=== PATIENT | female | born 1965 | race Caucasian/White ===

== ENCOUNTER 2024-04-30 10:50 | Outpatient (AMB) | payer OTHER, SELFPAY ==
--- NOTE | 2024-04-30 10:47 | A.OFFPC_ITS ---
Vital Signs 04/30/24 11:04 Height 5 ft 0.83 in Weight 193 lb BMI 36.7 BP 116/86 Blood Pressure Location Rt brachial Position Sitting Respiration 14 Pulse 76 Pulse Source Pulse Oximeter Temp 98.6 F Temp Source Oral Pulse Oximetry (%) 94 Oxygen Delivery Method Room Air Intake Visit Reasons: Patient needs appt right had stroke Intake Note: New patient visit [facility]ne[facility] Required: No Allergies clarithromycin [From Biaxin] Allergy (Unknown, Verified 04/30/24 11:26) throat closes Fish Containing Products Allergy (Unknown, Verified 04/30/24 11:26) Migraine Penicillins Allergy (Unknown, Verified 04/30/24 11:26) itchy Medication List - Last Reconciled 04/30/24 by Francheska Ulrich, CLIENT PORTFOLIO MANAGER- amlodipine 10 mg PO DAILY aspirin 81 mg PO DAILY atorvastatin 40 mg PO DAILY carvedilol 6.25 mg PO BID cranberry conc-ascorbic acid 12,600-20 mg caps PO loratadine-pseudoephedrine 5-120 mg ER (AllerClear D-12hr) 1 tab PO Q12H Tobacco use date assessed: 04/30/24 Dental Screening Dental Screen Date: 04/30/24 Did you have a dental visit in the last 12 months?: No Did you have a dental problem in the last 6 months where you did not have access to dental care?: No Was dental information given to patient?: No (Will check who her insurance covers) HPI HPI Comments History of Present Illness Details 59-year-old female with ischemic stroke (11/2023) with right hemiparesis RUE, facial droop & slurred speech, hypertension, seasonal allergies, CAD, dilation of ascending aorta, LVH , obesity 32 y/o special needs step dtr who lives w/ her s/p Uterine fibroid removal 05/2000, LEEP, adhesion removal, 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 MRI without brett showed acute i nfarct involving the left basal ganglia and adjacent white matter, scattered nonspecific FLAIR hyperintensity in the white matter most likely chronic small-vessel disease 12/19/23 Echocardiogram shows ascending a dodie at the upper limit of normal 3.6 cm, mitral valve mildly calcified, trace mitral regurg, right coronary cusp mildly calcified, mobile atrial septum but does not meet the criteria for intra atrial aneurysm, ejection fraction 55-60%, mild concentric LVH 12/19/23 CT angio of the head 12/18/2023 s hows mild mural calcifications in the right proximal internal carotid artery Specialists Neuro @ [facility] Dr Hunter next appt 04/2024 Cards > not active, referral placed today to [facility] Cards per request. Optho - wears glasses and is est w/ Eye doc and UTD one exams Health Maintenance: Colon has never had colon, denies family hx, will start with cologaurd given current health state, ordered today. Mammo - ordered today Dexa has never had one , ordered today Tdap given today Here today to est care and for a physical exam. In regards to her ischemic stroke that occurred in November of 2023, she is followed by [facility] Neurology. Consult note from December of 2023 reviewed. Her next appointment is in April of 2024. She is tolerant and compliant of her aspirin, atorvastatin and aspirin. She stopped Plavix after 21 days as directed. She completed occupational therapy. She reports full use of her right upper extremity, some mild facial drooping on the right, still suffers from speech impairments of which she describes as forgetting words or not having words come out right. She was referred to speech therapy however due to staffing. The services whenever rendered. She remains interested in speech therapy services In regards to her hypertension, she reports that she monitors them routinely at home and they have been at goal. She is tolerating compliant of her amlodipine and carvedilol. Will be having an Echo in may Sleep study in July Clement pending In review of her daily medication she is taking Claritin D every day sometimes 2 times per day. Discussed with her stopping this given the pseudoephedrine. She reports that she has received allergy shots in the past which did help her seasonal allergies however when she comes off of the Sudafed she has recurrent sinusitis. She is hesitant to stop this especially given the current allergy conditions. Plan Continue follow up with Neurology Continue all medications without change Recommend discontinuing the Sudafed and taking a once daily Claritin or other axjp-rdj-[id number] antihistamine without a decongestant. Treat nasal symptoms with Flonase and ipratropium. Referral for cardiology placed today Speech therapy order placed today Cologuard ordered today along with mammo and DEXA Tdap was administered. Check with the pharmacy about shingles and Prevnar Labs are up-to-date. Done November of 2023 at [facility] all of which were reviewed today. Return to the office in for routine follow up of complex conditions, sooner as needed. This note is constructed using voice recognition software. While every effort has been made to ensure accuracy in metal furrer, still errors may have been included Sometimes, these errors may affect the content or meaning of the given sentence . 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 1. Little interest or pleasure in doing things: not at all 2. Feeling down, depressed, or hopeless: not at all 3. Trouble falling or staying asleep, or sleeping too much: not at all 4. Feeling tired or having little energy: several days 5. Poor appetite or overeating: not at all 6. Feeling bad about yourself - or that you are a failure or have let yourself or your family down: not at all 7. Trouble concentrating on things, such as reading the newspaper or watching television: not at all 8. Moving or speaking so slowly that other people could have noticed. Or the opposite - being so fidgety or restless that you have been moving around a lot more than usual: not at all 9. Thoughts that you would be better off or of hurting yourself in some way: not at all Total score: 1 Depression Screening Interpretation: Negative Depression Screening Done: Yes [id number] - PHQ-9 Billing: Yes Source: Developed by Drs. Kleber Ulloa, Alfred Morejon and colleagues, with an educational mary from [employer]. Thrive Questionnaire Date Thrive assessed: 04/30/24 I am a: Patient What is your living situation today?: I have a steady place to live Within the past 12 months, did the food you bought not last and you didn't have the money to get more?: Never true Within the past 12 months, did you worry whether your food would run out before you got money to buy more?: Never true Do you have trouble paying for medicines?: No Do you have trouble getting transportation to medical appointments?: No Do you have trouble paying your heating and electricity bill?: No Do you have trouble taking care of your child, family member or friend?: No Do you have trouble with day-to-day activities such as bathing, preparing meals, shopping, managing finances, etc.?: No Are you currently unemployed and looking for a job?: No Are you interested in more education?: No Please select the resources that you would like help with: None Currently or been in a relationship where the following occur: No concerns reported THRIVE Score: 0 AUDIT C Alcohol Use Questionnaire (AUDIT-C) 1. How often do you have a drink containing alcohol?: Never 3. How often do you have six or more drinks on one occasion?: Never Total Score: 0 Score Reviewed/Action Taken: Yes BRETT-7 AMB Questionnaire BRETT-7 Date BRETT - 7 assessed: 04/30/24 Feeling nervous, anxious, or on edge: 0 = Not at all Not being able to stop or control worryin = Not at all Worrying too much about different things: 0 = Not at all Trouble relaxin = Several days Being so restless that it is hard to sit still: 0 = Not at all Becoming easily annoyed or irritable: 0 = Not at all Feeling afraid as if something awful might happen: 0 = Not at all Total BRETT-7 score (0-4 normal; 5-9 mild; 10-14 moderate; 15-21 severe): 1 Source: Developed by Drs. Kleber Ulloa, Alfred Morejon and colleagues, with an educational mary from [employer]. BRETT-7 Assessment Billing BRETT-7 Assessment Tool: BRETT-7 Assessment 34898 Review of Systems Const Details: Constitutional: Denies fever. Skin: Denies rash. Eye: Denies eye pain. ENMT: Denies sore throat and nasal congestion. Respiratory: Denies shortness of breath and cough. Gastrointestinal: Denies nausea, vomiting or abdominal pain. Cardiovascular: Denies chest pain and syncope. Genitourinary: Denies dysuria. Musculoskeletal: Denies back pain and extremity pain. Neurologic: Denies headaches, confusion, and weakness. Psychiatric: Denies suicidal thoughts and substance abuse. Allergy/ Immunologic: Denies impaired immunity. Physical exam (Primary Care) Vital Signs: Last Vital Signs Temp 98.6 F 04/30/24 11:04 Pulse 76 04/30/24 11:04 Resp 14 04/30/24 11:04 BP 116/86 04/30/24 11:04 Pulse Ox 94 04/30/24 11:04 Oxygen Delivery Method Room Air 04/30/24 11:04 BMI result Body Mass Index 36.7 BMI Assessment/Plan discussion: High BMI High, discussed plan: lifestyle Tobacco/Smoking Status: Tobacco use Status Tobacco use date assessed 04/30/24 04/30/24 11:07 Patient Tobacco Use Status Never used Tobacco 04/30/24 11:07 PHQ-9: PHQ-9 Score PHQ-9: Total score 1 04/30/24 11:12 Depression Screening Interpretation: Negative Thrive Assessment: Date of Thrive Assessment Date Thrive assessed 04/30/24 04/30/24 11:20 Currently or been in a relationship where the following occur: No concerns reported Const Other: General: Well developed, well nourished, in no acute distress. Appears stated age. Head: Normocephalic, atraumatic. Eyes: Pupils are equal, round and reactive to light and accommodation. Conjunctivae are clear. Vision grossly normal. Ears: TMs intact AU, congestion noted EACS WNL Nose: Patent, without discharge. Mouth: There are no ulcers or lesions noted. No inflammation, no post nasal drip, no plaques nor exudates. Neck: Supple, no adenopathy or thyromegaly. Lungs: Clear to auscultation bilaterally. No rales, rhonchi or wheeze noted. Good air flow in all van. Heart: Regular rate and rhythm. No murmurs, click, rubs or gallops are noted. Abdomen: Bowel sounds present in all quadrants. The abdomen is soft, nontender, with no masses or organomegaly noted. No hernias are noted. Musculoskeletal: Joints are nontender, without swelling, redness, or effusions. Range of motion is observed to be normal. Pulses: Peripheral pulses are equal and palpable bilaterally. Extremities: No clubbing, cyanosis is noted. Trace edema bilateral lower extremities, nonpitting, varicosities bilat, spider veins worse on left ankle Neurologic: Gait and station normal. Right facial droop 4/5 RUE otherwise Motor strength grossly symmetrical and intact. No sensory loss. Balance normal. Skin: No rashes, ulcers, or lesions noted. Turgor is good. Skin color is good. Hair and nails are without abnormalities. Psych: Normal eye contact, affect and mood appropriate, and normal interactions. Patient is alert and appropriate to context. 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: Comment: MRI 11/2023 @ [facility] Code(s): R90.82 - White matter disease, unspecified; I99.9 - Unspecified disorder of circulatory system (2) Hypertensive cardiomegaly: Comment: echo 12/19/23 LVH EF 55-60% Code(s): I11.9 - Hypertensive heart disease without heart failure (3) Ascending aorta dilation: Comment: eho 12/19/23 3.6 cm Code(s): I77.810 - Thoracic aortic ectasia (4) CAD in [place] artery: Code(s): I25.10 - Atherosclerotic heart disease of [place] coronary artery without angina pectoris (5) Obesity with serious comorbidity: Comment: with htn and cad Code(s): E66.9 - Obesity, unspecified Qualifiers: Obesity type: due to excess calories Obesity classification: adult class 2 (BMI 35 - 39.9) Body mass index: BMI 36.0-36.9 Qualified Code(s): E66.01 - Morbid (severe) obesity due to excess calories; Z68.36 - Body mass index [BMI] 36.0-36.9, adult (6) Menopause: Code(s): Z78.0 - Asymptomatic menopausal state (7) Right hemiparesis: Comment: Sequela of CVA 12-18-23 Affecting right upper extremity, right facial droop Code(s): G81.91 - Hemiplegia, unspecified affecting right dominant side (8) HTN (hypertension): Code(s): I10 - Essential (primary) hypertension Qualifiers: Hypertension type: primary hypertension Qualified Code(s): I10 - Essential (primary) hypertension (9) CVA (cerebral vascular accident): Comment: left basal ganglia acute infarct and small microhemorrhage in the deep location from small vessel dz r/t uncontrolled HTN Code(s): I63.9 - Cerebral infarction, unspecified Qualifiers: CVA mechanism: embolism Precerebral and cerebral artery: middle cerebral artery Laterality of affected vessel: left Qualified Code(s): I63.412 - Cerebral infarction due to embolism of left middle cerebral artery (10) Seasonal allergies: Code(s): J30.2 - Other seasonal allergic rhinitis Orders: Orders MM tomosynthesis screening BI Today Z12.31 - Encounter for screening mammogram for malignant neoplasm of breast, Z78.0 - Asymptomatic menopausal state XR DEXA axial skeleton Today Z12.31 - Encounter for screening mammogram for malignant neoplasm of breast, Z78.0 - Asymptomatic menopausal state Referrals Speech and Hearing Referral I63.9 - Cerebral infarction, unspecified Cardiology Referral I11.9 - Hypertensive heart disease without heart failure, I25.10 - Atherosclerotic heart disease of [place] coronary artery without angina pectoris, I77.810 - Thoracic aortic ectasia Cologuard Test Z12.11 - Encounter for screening for malignant neoplasm of colon, Z12.12 - Encounter for screening for malignant neoplasm of rectum Medications: New atorvastatin 40 mg PO DAILY 90 tabs 0RF amlodipine 10 mg PO DAILY 90 tabs 0RF carvedilol 6.25 mg PO BID 180 tabs 0RF Patient Instructions: Get Shingles vaccine, ask Pharmacy about Prevnar Tdap given today Health screenings for women You should visit your health care provider from time to time, even if you are healthy. The purpose of these visits is to: Screen for medical issues Assess your risk for future medical problems Encourage a healthy lifestyle Update vaccinations and other preventive care services Help you get to know your provider in case of an illness Information Even if you feel fine, you should still see your provider for regular checkups. These visits can help you avoid problems in the future. For example, the only way to find out if you have high blood pressure is to have it checked regularly. High blood sugar and high cholesterol levels also may not have any symptoms in the early stages. A simple blood test can check for these conditions. There are specific times when you should see your provider or receive specific health screenings. The [place] Preventive Services Task Force publishes a list of recommended screenings. Below are screening guidelines for women ages 18 to 39. BLOOD PRESSURE SCREENING Your blood pressure should be checked at least once every 3 to 5 years if: Your blood pressure is in the normal range (top number less than 120 mm Hg and bottom number less than 80 mm Hg) You don't have risk factors for high blood pressure Ask your provider if you need your blood pressure checked more often if: The top number is 120 to 129 mm Hg or the bottom number is 70 to 79 mm Hg You have diabetes, heart disease, kidney problems, are overweight, or have certain other health conditions You have a first-degree relative with high blood pressure You are Black You had high blood pressure during a If the top number is 130 mm Hg or greater or the bottom number is 80 mm Hg or greater, this is considered stage 1 hypertension. Schedule an appointment with your provider to learn how you can reduce your blood pressure. Watch for blood pressure screenings in your area. Ask your provider if you can stop in to have your blood pressure checked. BREAST CANCER SCREENING Experts do not agree about the benefits of breast self-exams in finding breast cancer or saving lives. Talk to your provider about what is best for you. A screening mammogram is not recommended for most women under age 40. Your provider may discuss and recommend mammograms, MRI scans, or ultrasounds if you have an increased risk for breast cancer, such as: A mother or sister who had breast cancer at a young age (most often starting screening earlier than the age the close relative was diagnosed) You carry a high-risk genetic marker CERVICAL CANCER SCREENING Cervical cancer screening should start at age 21 years unless your provider advises otherwise. After the first test: Women ages 21 through 29 should have a Pap test every 3 years. Exoprts do not agree on whether HPV testing is recommended for this age group. Women ages 30 through 65 should be screened with either a Pap test every 3 years or the HPV test every 5 years or both tests every 5 years (called cotesting ). Women who have been treated for precancer (cervical dysplasia) should continue to have Pap tests for 20 years after treatment or until age 65, whichever is longer. If you have had your uterus and cervix removed (total hysterectomy), and you hav e not been diagnosed with cervical cancer or precancer (high grade cervical neoplasia), you do not need cervical cancer screening. CHOLESTEROL SCREENING Cholesterol screening should begin at: Age 45 for women with no known risk factors for coronary heart disease Age 20 for women with known risk factors for coronary heart disease Repeat cholesterol screening should take place: Every 5 years for women with normal cholesterol levels More often if changes occur in lifestyle (including weight gain and diet) More often if you have diabetes, heart disease, kidney problems, or certain other conditions DIABETES SCREENING You should be screened for diabetes starting at age 35 and then repeated every 3 years if you have no risk factors for diabetes. Screening may need to start earlier and be repeated more often if you have other risk factors for diabetes, such as: You have a first degree relative with diabetes. You are overweight or have obesity. You have high blood pressure, prediabetes, or a history of heart disease. Screening for diabetes should be done if you are planning to become and you are overweight and have other risk factors such as high blood pressure. DENTAL EXAM Go to the dentist once or twice every year for an exam and cleaning. Your dentist will evaluate if you need more frequent visits. EYE EXAM Have an eye exam every 5 to 10 years before age 40. If you have vision problems, have an eye exam every 2 years or more often if recommended by your provider. You should have an eye exam that includes an examination of your retina (back of your eye) at least every year if you have diabetes. IMMUNIZATIONS Commonly needed vaccines include: Flu shot: get one every year. COVID-19 vaccine: ask your provider what is best for you. Tetanus-diphtheria and acellular pertussis (Tdap) vaccine: have one at or after age 19 as one of your tetanus-diphtheria vaccines if you did not receive it as an adolescent. Tetanus-diphtheria: have a booster (or Tdap) every 10 years. Varicella vaccine: receive 2 doses if you never had chickenpox or the varicella vaccine. Hepatitis B vaccine: receive 2, 3, or 4 doses, depending on your exact circumstances. Measles, mumps, and rubella (MMR) vaccine: receive 1 to 2 doses if you are not already immune to MMR. Your provider can tell you if you are immune. Ask your provider about the human papillomavirus (HPV) vaccine if: You have not received the HPV vaccine in the past You have not completed the full vaccine series (you should catch up on this shot) Ask your provider if you should receive other immunizations if you have certain health problems that increase your risk for some diseases such as pneumonia. INFECTIOUS DISEASE SCREENING Women who are sexually active should be screened for chlamydia and gonorrhea up until age 25. Women 25 years and older should be screened for chlamydia and gonorrhea if at high risk. Screening for hepatitis C: All adults ages 18 to 79 should get a one-time test for hepatitis C. people should be screened at every . Screening for human immunodeficiency virus (HIV): All people ages 15 to 65 should get a one-time test for HIV. Depending on your lifestyle and medical history, you may also need to be screened for infections such as syphilis and HIV, as well as other infections. PHYSICAL EXAM All adults should visit their provider from time to time, even if they are healthy. The purpose of these visits is to: Screen for disease Assess your risk of future medical problems Encourage a healthy lifestyle Update your vaccinations and other preventive care services Maintain a relationship with a provider in case of an illness Your height, weight, and BMI should be checked at every exam. During your exam, your provider may ask you about: Depression and anxiety Diet and exercise Alcohol and tobacco use Safety issues, such as using seat belts, smoke detectors, and intimate partner violence Your medicines and risk for interactions SKIN SELF-EXAM Your provider may check your skin for signs of skin cancer, especially if you're at high risk, such as if you: Have had skin cancer before Have close relatives with skin cancer Have a weakened immune system OTHER SCREENING Talk with your provider about colon cancer screening if you have a strong family history of colon cancer or polyps, or if you have had inflammatory bowel disease or polyps yourself. Routine bone density screening of women under 40 is not recommended. Walk-In Care (Urgent Care): We Make it Easy Walk-in for urgent medical issues such as: ? Seasonal Allergies ? Insect Bites ? Cough ? Diarrhea ? Acute Asthma Attacks ? Back, Knee or Joint Pain ? Ear Infection ? Fever without a Rash ? Headaches ? Nausea ? [place] [facility], Rash or Skin Irritation ? Sore Throat ? Sports Physicals ? Vomiting Most insurances are accepted. Patients do not need to be part of the [facility] to seek care at the walk-in clinic. Locations [address] [facility] , [place] [address] ? [phone] [facility] Walk-In Care in [place] provides services to ages 18 and over. Open Friday-Friday: 8 a.m. to 5 p.m. and Friday: 9 a.m. to 3 p.m.* *Hours may vary due to staffing availability. To confirm Walk-In Care hours in [place], please call [phone]. [address] [place] [address] ? [phone] [facility] Walk-In Care in [place] provides services to ages 12 and over. Open Friday-Friday: 8 a.m. to 5 p.m. Hours may vary due to staffing availability. To confirm Walk-In Care hours in [place], please call [phone]. LABORATORY SERVICES: [facility] ? Primary Location [address] [place] [address] Friday through Friday 6:00 AM ? 5:00 PM Friday 7:00 AM ? 11:00 AM* [phone] The [facility] is centrally located near the front entrance of the [facility] for easy outpatient access. Convenient parking is provided for outpatients. *Hours may vary due to staffing availability. To confirm Laboratory hours for any location, please call [phone]. Offsite Location For your convenience, we offer offsite laboratory draw stations at the following locations: [address] [place] [address] ? [address], [address] Friday through Friday 7:30 AM ? 1:00 PM* [phone] *Hours may vary due to staffing availability. To confirm Laboratory hours for any location, please call [phone]. [place] ? [address] Friday through Friday 6:00 AM ? 3:30 PM* Friday 6:30 AM ? 3 PM* [phone] *Hours may vary due to staffing availability. To confirm Laboratory hours for any location, please call [phone] [place] [address] Friday through Friday 7:30 AM ? 4:00 PM* [phone] *Hours may vary due to staffing availability. To confirm Laboratory hours for any location, please call [phone] [place] [address] Friday through 9:00 AM ? 4:00 PM* *Hours may vary due to staffing availability. To confirm Laboratory hours for any location, please call [phone]. Appointments are not necessary. Walk-ins are welcome. Like all the departments throughout the [facility], our Lab undergoes f requent reviews to ensure the quality and accuracy of test results, and our staff takes special pride in its status as a nationally accredited facility. Patient Portal: ONE PATIENT. ONE RECORD. BETTER CARE. [facility] has a fully integrated, cutting- edge mobile electronic health information system that has revolutionized the way we care for our patients and manage our organization. This system improves communication and coordination enabling us to provide safe, higher-quality care, and an overall positive experience for staff and patients. Our first priority, as always, is to deliver the highest quality care possible. The system is running in the background supporting that priority. This portal is for all [facility] services and practices. If you are experiencing any technical difficulties with enrolling or logging into the Patient Portal please complete the [facility] Patient [place] Technical Support Form. [facility] now offers a new secure on-line interactive tool for patients to review their health information ? Patient Portal. This interactive web portal will enable patients and their families to take an active role in their care by providing easy, secure access to their health information via the internet. The Patient Portal provides patients with instant access to their health information, including laboratory results, medications, allergies, demographic information, visit history, and more. In addition to managing their own care, parents and health care proxies with authorized consent will appreciate the ability to access the records of those individuals for whom they provide care. Please note: if you wish to gain access (Proxy) to another patient?s portal, you will be required to come to the Medical Records Department in person at [facility]. Both the patient giving proxy access and the proxy will need to provide photo identification and complete the appropriate authorization. The Patient Portal also allows track their appointments online. The [facility] Patient Portal also saves patients time by allowing them to submit updates to their demographic and contact information prior to their visits. Portal email notifications will also alert patients to any new activity on their portal, such as test results and new appointments. In order to initially enroll in the [facility] Patient Portal, you will need to enter some required information including the following: ? your [facility] Medical Record number ? your personal home email address ? name ? date of Please note: In order to enroll in the [facility] Patient Portal, we need to have your email address on file in your electronic medical record. The email address needs to be specific for one person (yourself) in order for your Portal enrollment to be successful. You can update your email address in person with our Registration staff when you are registering for a hospital visit. Otherwise, you will need to come to the Health Information Management (Medical Records) Department at [facility]. We are open from Friday ? Friday from 7:30 a.m. ? 4:30 p.m. You will be required to present a photo id. Once you have successfully enrolled in the Patient Portal, you will receive a one-time user id and password for the Portal, sent to your email address. This will allow you to log into the Patient Portal within 99 hrs and reset your own logon id and password, and define personal security questions. Once your permanent login and password have been set, you can log into the [facility] Patient Portal at any time via the blue button above or from the Portal Logon button on any page of the [facility] website. [facility] and [facility] encourage all of our patients to enroll in Patient Portal as it presents a valuable opportunity for patients and their families to actively participate in their care and stay healthy Welcome to [facility]. We look forward to working with you. 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; I99.9 Hypertensive cardiomegaly I11.9 Ascending aorta dilation I77.810 CAD in [place] artery I25.10 Class 2 severe obesity due to excess calories with serious comorbidity and body mass index (BMI) of 36.0 to 36.9 in adult E66.01; Z68.36 Obesity type: due to excess calories Obesity classification: adult class 2 (BMI 35 - 39.9) Body mass index: BMI 36.0-36.9 Menopause Z78.0 Right hemiparesis G81.91 Primary hypertension I10 Hypertension type: primary hypertension Cerebrovascular accident (CVA) due to embolism of left middle cerebral artery I63.412 CVA mechanism: embolism Precerebral and cerebral artery: middle cerebral artery Laterality of affected vessel: left Seasonal allergies J30.2 Additional Codes BRETT-7 Assessment Billing - BRETT-7 Assessment Tool: BRETT-7 Assessment 84209 ([id number])
[2024-04-30 11:04] VITALS: BP 116/86; PULSE 76; RESP 14; TEMP 37; O2SAT 94; BMI 36.7
== END 2024-04-30 11:52 | disposition home or self-care (01) ==
PROVIDERS: PCP Nurse Practitioner Family; Visit Provider Nurse Practitioner Family
DX: Z00.00 Encounter for general adult medical examination without abnormal findings (principal); E66.01 Morbid (severe) obesity due to excess calories; I77.810 Thoracic aortic ectasia; Z23 Encounter for immunization; Z68.36 Body mass index [BMI] 36.0-36.9, adult; G81.91 Hemiplegia, unspecified affecting right dominant side; I63.412 Cerebral infarction due to embolism of left middle cerebral artery; R90.82 White matter disease, unspecified; I99.9 Unspecified disorder of circulatory system; I11.9 Hypertensive heart disease without heart failure; I25.10 Atherosclerotic heart disease of native coronary artery without angina pectoris; Z78.0 Asymptomatic menopausal state; I10 Essential (primary) hypertension; J30.2 Other seasonal allergic rhinitis
CPT/HCPCS: 90471; 90715; 99386

== ENCOUNTER 2024-06-03 12:58 | Outpatient (REF) | payer OTHER, SELFPAY ==
--- NOTE | ~2024-06-03 | MM_ITS ---
EXAMINATION: MM SCREENING DIGITAL BREAST TOMOSYNTHESIS, BILATERAL CLINICAL INFORMATION: Screening. Asymptomatic. COMPARISON: Mammography: This study is compared with prior exams dating back to 2012. TECHNIQUE: Digital breast tomosynthesis is performed in both the craniocaudal and mediolateral oblique views along with computer-aided detection (CAD). Direct 2D images are also obtained. FINDINGS: There are scattered areas of fibroglandular density (ACR BI-RADS breast composition Category b). There are no significant masses, abnormal calcifications, or other abnormalities. MM/MM tomosynthesis screening BI IMPRESSION: No mammographic evidence of malignancy. ASSESSMENT: BI-RADS BI-RADS 1 - Negative RECOMMENDATION: Routine annual mammography screening. 1 year F/U This examination should not preclude the clinical evaluation of a suspicious palpable abnormality. This patient's information was entered into a reminder system with a target due date for their next mammogram. Electronically signed by: Michelle Johnson MD 07/01/2024 11:47 AM EDT
--- NOTE | ~2024-06-03 | MM_ITS ---
EXAMINATION: BONE DENSITOMETRY CLINICAL INDICATION: Menopause. COMPARISON: This is the patient's baseline examination. TECHNIQUE: Using a Coty DXA System (software version: 13.1) manufactured by [employer], dual-energy x-ray absorptiometry was performed of the lumbar spine and left hip. The images are of good technical quality. Summary results are attached. FINDINGS: LEFT FEMUR, NECK: BMD 0.849 g/cm2, Z-score -0.6, T-score -1.4, osteopenia. LEFT FEMUR, TOTAL: BMD 0.906 g/cm2, Z-score -0.4, T-score -0.8, normal. AP SPINE L1-L4: BMD 0.988 g/cm2, Z-score -1.2, T-score -1.6, osteopenia. IDENTIFIED RISK FACTORS: Early menopause, hysterectomy, left oophorectomy, secondary osteoporosis. HISTORY OF FRACTURE: None listed. MEDICATIONS: None listed. MM/XR DEXA axial skeleton IMPRESSION: 1. DIAGNOSIS: Osteopenia based on the lowest T-score value of -1.6 in the lumbar spine applying World Health Organization criteria. 2. 10-YEAR FRACTURE RISK PREDICTION, FRAX: Major osteoporotic fracture (clinical spine, forearm, hip or shoulder) 6.5%. Hip fracture 0.4%. 3. Treatment Recommendations: NOF guidelines recommend consideration for treatment in postmenopausal women and men age 50 and older presenting with the following: -A hip or vertebral (clinical or morphometric) fracture. -T-score less than or equal to -2.5 at the femoral neck or spine after appropriate evaluation to exclude secondary causes. -Low bone mass at the hip or spine and a 10-year fracture probability by FRAX of greater than or equal to 3% for hip fracture or greater than or equal to 20% for major osteoporotic fracture based on the [place] adapted WHO algorithm. 4. Other Recommendations: All treatment decisions require clinical judgment and consideration of individual patient factors, including patient preferences, comorbidities, previous drug use, risk factors not captured in the FRAX model (e.g. frailty, falls, vitamin D deficiency, increased bone turnover, interval significant decline in bone density) and possible under or overestimation of fracture risk by FRAX. Additional medical evaluation for secondary cause of low bone mineral density may be appropriate. FUTURE SCAN RECOMMENDATION: People with diagnosed cases of osteoporosis or at high risk for fracture should have regular bone mineral density tests. For patients eligible for Medicare, routine testing is allowed once every 2 years. The testing frequency can be increased to one year for patients who have rapidly progressing disease, those who are receiving or discontinuing medical therapy to restore bone mass, or have additional risk factors.
== END 2024-06-03 12:59 | disposition home or self-care (01) ==
LOC: HO.MAMMO 12:58
PROVIDERS: PCP Nurse Practitioner Family; Visit Provider Nurse Practitioner Family
DX: Z12.31 Encounter for screening mammogram for malignant neoplasm of breast (principal); Z13.820 Encounter for screening for osteoporosis; Z78.0 Asymptomatic menopausal state
CPT/HCPCS: 77063; 77067; 77080

== ENCOUNTER → 2024-06-03 13:15 | Outpatient (BNV) | payer OTHER, SELFPAY | PROVIDERS: PCP Nurse Practitioner Family; Visit Provider Radiology Diagnostic Radiology | DX: Z12.31 Encounter for screening mammogram for malignant neoplasm of breast (principal) | CPT/HCPCS: 77063; 77067 ==

== ENCOUNTER 2024-07-07 08:24 | Outpatient (AMB) | payer OTHER, SELFPAY ==
--- NOTE | 2024-07-07 08:42 | AM.OFFWIN_ITS ---
Intake Vital Signs 07/07/24 08:45 Height 5 ft 1 in Weight 194 lb 2 oz BMI 36.7 BP 122/72 Blood Pressure Location Rt brachial Position Sitting Respiration 15 Pulse 67 Pulse Source Pulse Oximeter Pulse Oximetry (%) 98 Oxygen Delivery Method Room Air Intake Visit Reasons: est/left ear blocked/congested Intake Note: patient complaining of left ear blockage and a little uncomfortable Patient Tobacco Use Status: Never used Tobacco Allergies clarithromycin [From Biaxin] Allergy (Unknown, Verified 07/07/24 08:54) throat closes Fish Containing Products Allergy (Unknown, Verified 07/07/24 08:54) Migraine Penicillins Allergy (Unknown, Verified 07/07/24 08:54) itchy Medication List - Last Reconciled 07/07/24 by Francheska Ulrich, VOTING MACHINE MECHANIC- amlodipine 10 mg PO DAILY aspirin 81 mg PO DAILY atorvastatin 40 mg PO DAILY carvedilol 6.25 mg PO BID cranberry conc-ascorbic acid 12,600-20 mg caps PO loratadine (Allergy Relief (loratadine)) 10 mg PO DAILY Do you need a note to return to daycare/school/sports/work: No HPI HPI Comments History of Present Illness Details 59-year-old female with ischemic stroke (11/2023) with right hemiparesis RUE, facial droop & slurred speech, hypertension, seasonal allergies, CAD, dilation of ascending aorta, LVH , obesity, CHRISTIAN Here today w/ URI sx Started to feel sick 1 week ago. Using nasal spray, flonase, without relief. Left ear has muffled hearing, has cheek/dental pain Daily headache, sinus pressure and pain Taking APAP and Excedrin with + relief of headache Denies fever, chills, sore throat, cough, chest pain, sob. Exam: Awake alert NAD, right facial droop (baseline) Sclera and conjunctiva clear bilat Nares patent, turbinates within normal limits, + right frontal and bilat sinus tenderness with palpation bilat TM intact with congestion bilat MMM, pharynx WNL RRR LS CTAB Plan: Treat with doxy given allergies. Cont flonase. ok to use apap/excedrin prn and sparingly RTO edu provided This note is constructed using voice recognition software. While every effort has been made to ensure accuracy in thermal molder, still errors may have been included Sometimes, these errors may affect the content or meaning of the given sentence . 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 Medications: New doxycycline hyclate 100 mg PO BID 7 days 14 caps 0RF Patient Instructions: What Is It? Sinuses are air-filled spaces behind the bones of the upper face: between the eyes and behind the forehead, nose and cheeks. The lining of the sinuses are made up of cells with tiny hairs on their surfaces called cilia. Other cells in the lining produce mucus. The mucus traps germs and pollutants and the cilia push the mucus out through narrow sinus openings into the nose. When the sinuses become inflamed or infected, the mucus thickens and clogs the openings to one or more sinuses. Fluid builds up inside the sinuses causing increased pressure. Also bacteria can become trapped, multiply and infect the lining. This is sinusitis. Prevention There are some measures you can take to decrease your risk of developing sinusitis. If you smoke cigarettes, you should quit. The smoke can irritate nasal passageways and increase the likelihood of i nfection. Nasal allergies can trigger sinus infections, too. By identifying the allergen (the substance causing the allergic reaction) and avoiding it, you can help prevent sinusitis. If you have congestion from a cold or allergies, the following may help to reduce the risk of developing sinusitis: Drink lots of water. This thins nasal secretions and keeps mucous membranes moist. Use steam to soothe nasal passages. Breathe deeply while standing in a hot shower, or inhale the vapor from a basin filled with hot water while holding a towel over your head. Avoid blowing your nose with great force, which can push bacteria into the sinuses. Some doctors advise periodic home nasal washings to clear secretions. This may help prevent, and also treat, sinus infections. Treatment Many sinus infections improve without treatment. However, several medications may speed recovery and reduce the chance that an infection will become chronic. Decongestants - Congestion often triggers sinus infections, and decongestants can open the sinuses and allow them to drain. Several are available: Pseudoephedrine (Sudafed) is available without prescription, alone or in combination with other medications in multi-symptom cold and sinus remedies. Pseudoephedrine can cause insomnia, racing pulse and jitteriness. Do not use if you have high blood pressure or a heart condition. Phenylephrine (such as Raquel afed PE) is an alternative hcil-wwr-vnyzpfy oral decongestant. If you take products containing oral phenylephrine, check with the pharmacist to be certain there is no interaction with other medications you take. Oxymetazoline (AfrinSocrates and others) and phenylephrine (Nirmal-Synephrine and others) are found in nasal sprays. They are effective and may be less likely to cause the side effects seen with pseudoephedrine. However, using a nasal decongestant for more than three days can cause worse symptoms when you stop the medication. This is called the rebound effect. Antihistamines - These medications help to relieve the symptoms of nasal allergies that lead to inflammation and infections. However, some doctors advise against using antihistamines during a sinus infection because they can cause excessive drying and slow the drainage process. Rgrb-dfh-esclzzx antihistamines include diphenhydramine (Benadryl and others), chlorpheniramine (Chlor-Trimeton and others) and loratadine (Claritin). Fexofenadine (Cielo) and cetrizine (Zyrtec) are available by prescription. Nasal steroids - Anti-inflammatory sprays such as mometasone (Nasonex) and fluticasone (Flonase), both available by prescription, reduce swelling of nasal membranes. Like antihistamines, nasal steroids can be most useful for those who have nasal allergies. Nasal steroids tend to produce less drying than antihistamines. Unlike nasal decongestants, nasal steroids can be used for prolonged periods. Saline nasal sprays - These salt-water sprays are safe to use and can provide some relief by adding moisture to the nasal passages, thinning mucus secretions and helping to flush out any bacteria that may be present. Pain relievers - Acetaminophen (Tylenol), ibuprofen (Advil, Motrin and others) or naproxen (Aleve) can be taken sinus pain. Antibiotics - Your doctor may prescribe an antibiotic if he or she suspects that a bacterial infection is causing your sinusitis. If you start taking an antibiotic, complete the entire course so that the infection is completely killed off. Not all cases of sinusitis require antibiotic treatment: Talk with your doctor about whether an antibiotic is right for you. Keep in mind that antibiotics can cause side effects, such as allergic reactions, rash and diarrhea. In addition, overusing antibiotics eventually leads to the spread of bacteria that no longer can be killed by the most commonly prescribed antibiotics. When To Call A Professional Contact a doctor if you experience facial pain along with a headache and fever, cold symptoms that last longer than seven to 10 days, or persistent green discharge from the nose. If your symptoms don't improve within a week of beginning treatment, call your doctor. Call sooner if symptoms are getting worse. If you have repeated bouts of acute sinusitis, you may have allergies or another treatable cause of sinus congestion. Ask your doctor for advice. Coding Level of Care Code Est Pt Level 3 (68370) Diagnoses Acute bacterial sinusitis J01.90; B96.89
[2024-07-07 08:45] VITALS: BP 122/72; PULSE 67; RESP 15; O2SAT 98; BMI 36.7
== END 2024-07-07 09:03 | disposition home or self-care (01) ==
PROVIDERS: PCP Nurse Practitioner Family; Visit Provider Nurse Practitioner Family
DX: J01.90 Acute sinusitis, unspecified (principal); B96.89 Other specified bacterial agents as the cause of diseases classified elsewhere
CPT/HCPCS: 99213

== ENCOUNTER 2024-08-04 08:25 | Outpatient (AMB) | payer OTHER, SELFPAY ==
--- NOTE | 2024-08-04 08:59 | A.OFFPC_ITS ---
Vital Signs 08/04/24 09:02 Height 5 ft 1 in Weight 194 lb 4 oz BMI 36.7 BP 124/70 Blood Pressure Location Lt brachial Position Sitting Respiration 14 Pulse 63 Pulse Source Pulse Oximeter Pulse Oximetry (%) 97 Oxygen Delivery Method Room Air Intake Visit Reasons: chronic conditions Intake Note: follow up Allergies clarithromycin [From Biaxin] Allergy (Unknown, Verified 08/04/24 09:27) throat closes Fish Containing Products Allergy (Unknown, Verified 08/04/24 09:27) Migraine Penicillins Allergy (Unknown, Verified 08/04/24 09:27) itchy Medication List - Last Reconciled 08/04/24 by Francheska Ulrich, SALES OPERATIONS ASSISTANT- amlodipine 10 mg PO DAILY aspirin 81 mg PO DAILY atorvastatin 80 mg PO DAILY carvedilol 6.25 mg PO BID cranberry conc-ascorbic acid 12,600-20 mg caps PO loratadine (Allergy Relief (loratadine)) 10 mg PO DAILY Tobacco use date assessed: 04/30/24 Dental Screening Dental Screen Date: 04/30/24 HPI HPI Comments History of Present Illness0 Details 59-year-old female with ischemic stroke (11/2023) with right hemiparesis RUE, facial droop & slurred speech, hypertension, seasonal allergies, CAD, di lation of ascending aorta, LVH , obesity, obstructive sleep apnea and borderline nocturnal hypoxemia s/p Uterine fibroid removal 05/2000, LEEP, adhesion removal, Right ovary spared s/p ROSETTA Social: 32 y/o special needs step dtr who lives w/ her 12/18/2023 MRI without brett showed acute i nfarct involving the left basal ganglia and adjacent white matter, scattered nonspecific FLAIR hyperintensity in the white matter most likely chronic small-vessel disease 12/19/23 Echocardiogram shows ascending a dodie at the upper limit of normal 3.6 cm, mitral valve mildly calcified, trace mitral regurg, right coronary cusp mildly calcified, mobile atrial septum but does not meet the criteria for intra atrial aneurysm, ejection fraction 55-60%, mild concentric LVH 12/19/23 CT angio of the head shows mild mural calcifications in the right proximal internal carotid artery [facility] @ [facility] per request. Cleared from future f/u. Optho - wears glasses and is est w/ Eye doc and UTD one exams Health Maintenance: Colon has never had colon, denies family hx ,cologaurd 05/11/2024 negative repeat 3 years . Mammo - 05/2024 WNL Dexa 06/03/24 Osteopenia based on the lowest T-score value of -1.6 in the lumbar spine applying World Health Organization criteria (2025) Tdap 04/30/24 Here today for routine fu of complex conditions Appt w/ Neuro was rescheduled from 04/2024. This has not been rescheduled yet. Completed Sleep Study, Echo w/ bubble study and [facility] Patch Cards yesterday. Told Echo was normal along w/ Patch. PFO ruled out Cleared from future f/u. Consult note n/a at this time. DEXA + osteopenia: New sx. Start Ca 600 + Vitamin D3 500 IU twice per day, lifestyle mods, repeat in 2 years 2025 Since stroke, has tingling sensation between shoulders. R arm cont to be weak, although stronger, this comes and goes. At this time, reassured, advised to monitor and if changing or worsening to let me know. Also encouraged to tell Neuro. Cont to have L ear pressure, on and off. Did complete AB as directed. Has been using heating pad. Has seasonal allergies. Using flonase. Recommend stopping claritin and start zyrtec or Xyzal 1 tab QD. Buy OTC Reviewed sleep study with her: Home sleep study done at [facility] 05/31/2024 demonstrated obstructive sleep apnea and borderline nocturnal hypoxemia. The oxygen saturation generally was 88-92% with a gerry of 77%. Greater than 10 minutes of the study sustained oxygen sats less than 88%. Diagnosis of obstructive sleep apnea with nocturnal hypoxemia. Recommend an attended titration study with TCO2 monitoring or starting the patient on auto CPAP 5-20 cm H2O. Once started on auto CPAP overnight oximetry while on PAP is recommended to ensure resolution of nocturnal hypoxemia. Labs from 08/04/2024 show a normal CBC, normal electrolytes, BUN 13, creatinine 0.73, hemoglobin A1c 5.2%, normal iron profile, normal ferritin, normal LFTs, normal B12, TSH 0.97 Exam: General: Well developed, well nourished, in no acute distress. Appears stated age. Head: Normocephalic, atraumatic. Eyes: Pupils are equal, round and reactive to light and accommodation. Conjunctivae are clear. Vision grossly normal. Ears: Mild congestion R TM, Air bubbles in L TM, EAC clear bilat Nose: Turbinates w/ edema on L, normal on R, no sinus tenderness Mouth: There are no ulcers or lesions noted. No inflammation, + post nasal drip. Neck: Supple, no adenopathy or thyromegaly. Lungs: Clear to auscultation bilaterally. No rales, rhonchi or wheeze noted. Good air flow in all van. Heart: Regular rate and rhythm. No murmurs, click, rubs or gallops are noted. Abdomen: Bowel sounds present in all quadrants. The abdomen is soft, nontender, with no masses or organomegaly noted. No hernias are noted. Extremities: No clubbing, cyanosis is noted. Trace edema bilateral lower extremities, nonpitting, varicosities bilat, spider veins worse on left ankle Neurologic: Gait and station normal. Right facial droop 4/5 RUE otherwise Motor strength grossly symmetrical and intact. No sensory loss. Balance normal . Plan: Start Ca 600 + Vitamin D3 500 IU twice per day, lifestyle mods, repeat in 2 years 2025 advised to monitor and if changing or worsening to let me know. Also encouraged to tell Neuro. Recommend stopping claritin and start zyrtec or Xyzal 1 tab QD. Buy OTC As she does not have a neurology appointment CT scheduled, given the findings of her sleep study the discussion was had about starting a CPAP. She is willing to use a CPAP she is aware that she needs to wear this every night. Compliance was reviewed. An order form was completed and [facility] Patient made aware that she should follow up with them if she does not hear from them in about a week or so. The plan will be starting the patient on auto CPAP 5-20 cm H2O. Once started on auto CPAP overnight oximetry while on PAP is recommended to ensure resolution of nocturnal hypoxemia. RTO 3-4 months routine complex fu, sooner PRN This note is constructed using voice recognition software. While every effort has been made to ensure accuracy in campaign assistant, still errors may have been included Sometimes, these errors may affect the content or meaning of the given sentence . Total time spent caring for the patient today was 45 minutes. 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 How many drinks containing alcohol do you have on a typical day when you are drinking?: 1 or 2 3. How often do you have six or more drinks on one occasion?: Never Total Score: 0 BRETT-7 AMB Questionnaire BRETT-7 Date BRETT - 7 assessed: 04/30/24 Source: Developed by Drs. Kleber Ulloa, Elsy Crystal, Alfred Segovia and colleagues, with an educational mary from [employer]. Physical exam (Primary Care) Vital Signs: Last Vital Signs Pulse 63 08/04/24 09:02 Resp 14 08/04/24 09:02 BP 124/70 08/04/24 09:02 Pulse Ox 97 08/04/24 09:02 Oxygen Delivery Method Room Air 08/04/24 09:02 BMI result Body Mass Index 36.7 Tobacco/Smoking Status: Tobacco use Status Tobacco use date assessed 04/30/24 08/04/24 09:00 Patient Tobacco Use Status Never used Tobacco 08/04/24 09:00 Thrive Assessment: Date of Thrive Assessment Date Thrive assessed 04/30/24 08/04/24 09:00 Office Procedures Flu Questionnaire Does the patient have a severe egg allergy?: No Does the patient have severe life threatening allergies?: No Does the patient have a fever or illness today?: No Has the patient ever had Guillain-[place] Syndrome?: No Has the patient ever had any past reaction to a flu shot?: No Immunizations Fluarix Triv 1240-4170 (PF) 45 mcg (15 mcg x 3)/0.5 mL IM syringe Performing Provider: CHASE Husain-BC Performing Location: [facility] Administered by: Pema Francois RN on 08/04/24 09:37 Dose Route Admin Location Dispensed Lot Number Expiration Date [facility] Medical Service Technician 0.5 mL IM Right Deltoid 0.5 mL [id number] 04/25/25 [id number] [employer] VIS Given Date VIS Provided VIS Publication Date 08/04/24 Single Vaccine 21 Eligibility Eligibility Date Funding Source Not [facility] Eligible 08/04/24 Private Coding Level of Care Code Est Pt Level 5 (24426) Complex EM visit Add On G2211 Diagnoses CAD in [place] artery I25.10 Primary hypertension I10 Hypertension type: primary hypertension Hypertensive cardiomegaly I11.9 Ascending aorta dilation I77.810 Cerebrovascular accident (CVA) due to embolism of left middle cerebral artery I63.412 CVA mechanism: embolism Laterality of affected vessel: left Precerebral and cerebral artery: middle cerebral artery Osteopenia of multiple sites M85.89 Osteopenia location: multiple sites Seasonal allergies J30.2 CHRISTIAN on CPAP G47.33 Assessment & Plan Assessment & Plan (1) CAD in [place] artery: Code(s): I25.10 - Atherosclerotic heart disease of [place] coronary artery without angina pectoris Category: Medical Plan: . (2) HTN (hypertension): Code(s): I10 - Essential (primary) hypertension Category: Medical Qualifiers: Hypertension type: primary hypertension Qualified Code(s): I10 - Essential (primary) hypertension Plan: . (3) Hypertensive cardiomegaly: Comment: echo 12/19/23 LVH EF 55-60% Code(s): I11.9 - Hypertensive heart disease without heart failure Category: Medical (4) Ascending aorta dilation: Comment: eho 12/19/23 3.6 cm Code(s): I77.810 - Thoracic aortic ectasia Category: Medical Plan: . (5) CVA (cerebral vascular accident): Comment: left basal ganglia acute infarct and small microhemorrhage in the deep location from small vessel dz r/t uncontrolled HTN Code(s): I63.9 - Cerebral infarction, unspecified Category: Medical Qualifiers: CVA mechanism: embolism Laterality of affected vessel: left Precerebral and cerebral artery: middle cerebral artery Qualified Code(s): I63.412 - Cerebral infarction due to embolism of left middle cerebral artery Plan: . (6) Osteopenia: Code(s): M85.80 - Other specified disorders of bone density and structure, unspecified site Category: Medical Qualifiers: Osteopenia location: multiple sites Qualified Code(s): M85.89 - Other specified disorders of bone density and structure, multiple sites Plan: . (7) Seasonal allergies: Code(s): J30.2 - Other seasonal allergic rhinitis Category: Medical Plan: . (8) CHRISTIAN on CPAP: Code(s): G47.33 - Obstructive sleep apnea (adult) (pediatric) Category: Medical Plan: Home sleep study done at [facility] 05/31/2024 demonstrated obstructive sleep apnea and borderline nocturnal hypoxemia. The oxygen saturation generally was 88-92% with a gerry of 77%. Greater than 10 minutes of the study sustained oxygen sats less than 88%. Diagnosis of obstructive sleep apnea with nocturnal hypoxemia. Recommend an attended titration study with TCO2 monitoring or starting the patient on auto CPAP 5-20 cm H2O. Once started on auto CPAP overnight oximetry while on PAP is recommended to ensure resolution of nocturnal hypoxemia. Plan . Orders: Orders Comprehensive Met. Panel Today I10 - Essential (primary) hypertension, I11.9 - Hypertensive heart disease without heart failure, I25.10 - Atherosclerotic heart disease of [place] coronary artery without angina pectoris, I63.412 - Cerebral infarction due to embolism of left middle cerebral artery, I77.810 - Thoracic aortic ectasia, M85.80 - Other specified disorders of bone density and structure, unspecified site TSH reflex Free T4 Today I10 - Essential (primary) hypertension, I11.9 - Hypertensive heart disease without heart failure, I25.10 - Atherosclerotic heart disease of [place] coronary artery without angina pectoris, I63.412 - Cerebral infarction due to embolism of left middle cerebral artery, I77.810 - Thoracic aortic ectasia, M85.80 - Other specified disorders of bone density and structure, unspecified site IRON PROFILE Today I10 - Essential (primary) hypertension, I11.9 - Hypertensive heart disease without heart failure, I25.10 - Atherosclerotic heart disease of [place] coronary artery without angina pectoris, I63.412 - Cerebral infarction due to embolism of left middle cerebral artery, I77.810 - Thoracic aortic ectasia, M85.80 - Other specified disorders of bone density and structure, unspecified site Ferritin Today I10 - Essential (primary) hypertension, I11.9 - Hypertensive heart disease without heart failure, I25.10 - Atherosclerotic heart disease of [place] coronary artery without angina pectoris, I63.412 - Cerebral infarction due to embolism of left middle cerebral artery, I77.810 - Thoracic aortic ectasia, M85.80 - Other specified disorders of bone density and structure, unspecified site Hemoglobin A1c Today I10 - Essential (primary) hypertension, I11.9 - Hypertensive heart disease without heart failure, I25.10 - Atherosclerotic heart disease of [place] coronary artery without angina pectoris, I63.412 - Cerebral infarction due to embolism of left middle cerebral artery, I77.810 - Thoracic aortic ectasia, M85.80 - Other specified disorders of bone density and structure, unspecified site LDL Cholesterol Direct Today I10 - Essential (primary) hypertension, I11.9 - Hypertensive heart disease without heart failure, I25.10 - Atherosclerotic heart disease of [place] coronary artery without angina pectoris, I63.412 - Cerebral infarction due to embolism of left middle cerebral artery, I77.810 - Thoracic aortic ectasia, M85.80 - Other specified disorders of bone density and structure, unspecified site Complete Blood Count no Diff Today I10 - Essential (primary) hypertension, I11.9 - Hypertensive heart disease without heart failure, I25.10 - Atherosclerotic heart disease of [place] coronary artery without angina pectoris, I63.412 - Cerebral infarction due to embolism of left middle cerebral artery, I77.810 - Thoracic aortic ectasia, M85.80 - Other specified disorders of bone density and structure, unspecified site Vitamin B12 and Folate Today I10 - Essential (primary) hypertension, I11.9 - Hypertensive heart disease without heart failure, I25.10 - Atherosclerotic heart disease of [place] coronary artery without angina pectoris, I63.412 - Cerebral infarction due to embolism of left middle cerebral artery, I77.810 - Thoracic aortic ectasia, M85.80 - Other specified disorders of bone density and structure, unspecified site Influenza [id number] Immunization Today Z23 - Encounter for immunization Medications: New calcium carbonate-vitamin D3 600 mg-12.5 mcg (500 unit) (Calcium 600 with Vitamin D3) 1 cap PO BID 180 caps 2RF atorvastatin 80 mg PO BEDTIME 90 tabs 2RF Patient Instructions: [facility] ? [address], [address] [facility] [address] For allergies: try OTC Zyrtec 10mg daily OR Xyzal 5mg daily
[2024-08-04 09:02] VITALS: BP 124/70; PULSE 63; RESP 14; O2SAT 97; BMI 36.7
== END 2024-08-04 09:47 | disposition home or self-care (01) ==
PROVIDERS: PCP Nurse Practitioner Family; Visit Provider Nurse Practitioner Family
DX: I25.10 Atherosclerotic heart disease of native coronary artery without angina pectoris (principal); I77.810 Thoracic aortic ectasia; I63.412 Cerebral infarction due to embolism of left middle cerebral artery; I10 Essential (primary) hypertension; I11.9 Hypertensive heart disease without heart failure; M85.89 Other specified disorders of bone density and structure, multiple sites; J30.2 Other seasonal allergic rhinitis; G47.33 Obstructive sleep apnea (adult) (pediatric)

== ENCOUNTER → 2024-08-04 08:25 | Outpatient (BNVA) | payer OTHER, SELFPAY | PROVIDERS: PCP Nurse Practitioner Family; Visit Provider Nurse Practitioner Family | DX: Z23 Encounter for immunization (principal); I25.10 Atherosclerotic heart disease of native coronary artery without angina pectoris; I11.9 Hypertensive heart disease without heart failure; I77.810 Thoracic aortic ectasia; I63.412 Cerebral infarction due to embolism of left middle cerebral artery; M85.89 Other specified disorders of bone density and structure, multiple sites; J30.2 Other seasonal allergic rhinitis; G47.33 Obstructive sleep apnea (adult) (pediatric) | CPT/HCPCS: 90471; 90656; 99212 ==

== ENCOUNTER 2024-08-04 09:47 | Outpatient (REF) | payer OTHER, SELFPAY ==
[2024-08-04 11:58] LABS: Hematocrit 39.6 % (37.0-47.0); Hemoglobin 13.7 g/dl (12.0-16.0); Mean Corpuscular HGB Conc 34.6 g/dl (31.0-35.0); Mean Corpuscular Hemoglobin 30.9 pg (27.0-33.0); Mean Corpuscular Volume 89.4 fL (80.0-98.0); Mean Platelet Volume 9.7 fL (9.4-12.3); Platelet Count 283 X10*3/uL (160-400); Red Blood Count 4.43 X10*6/uL (4.20-5.50); White Blood Count 6.2 X10*3/uL (4.8-10.8)
[2024-08-04 12:11] LABS: Estimated Average Glucose 103 mg/dL; Hemoglobin A1C 111.2452 umol/L; Hemoglobin A1c % 5.2 % (<6.0); Total Hemoglobin (HGBA1C) 3313.0255 umol/L
[2024-08-04 12:18] LABS: Alanine Aminotransferase 20 U/L (0-31); Albumin Level 4.1 g/dL (3.5-5.0); Alkaline Phosphatase 100 U/L (39-117); Anion Gap 10 (12-20); Aspartate Amino Transferase 19 U/L (5-31); Bilirubin Total 0.7 mg/dL (0.0-1.0); Blood Urea Nitrogen 13 mg/dL (9-16); Calcium 9.7 mg/dL (8.4-10.2); Carbon Dioxide 30 mmol/L (22-29); Chloride 106 mmol/L (96-108); Estimated Glomerular Filt Rate > 60; Glucose Random 108 mg/dL (60-115); Iron 68 mcg/dL (30-160); Percent Iron Saturation 27 % (15-50); Potassium 3.9 mmol/L (3.3-5.1); Sodium 142 mmol/L (135-145); Total Iron Binding Capacity 254 mcg/dL (228-428); Total Protein 7.3 g/dL (6.5-8.0); Unsaturated Iron Binding 186 ug/dL
[2024-08-04 12:46] LABS: Folate 5.4 ng/mL (> or = 4.0); Vitamin B12 247 pg/mL (200-900)
[2024-08-04 12:49] LABS: Ferritin 220 ng/mL (10-250); TSH reflex Free T4 0.97 uIU/mL (0.32-4.0)
[2024-08-06 07:28] LABS: LDL Cholesterol Direct 61 mg/dL (<100)
== END 2024-08-04 09:48 | disposition home or self-care (01) ==
LOC: HO.WFDLDS 09:47
PROVIDERS: Visit Provider Nurse Practitioner Family
DX: M85.80 Other specified disorders of bone density and structure, unspecified site (principal); I63.412 Cerebral infarction due to embolism of left middle cerebral artery; I77.810 Thoracic aortic ectasia; I11.9 Hypertensive heart disease without heart failure; I25.10 Atherosclerotic heart disease of native coronary artery without angina pectoris
CPT/HCPCS: 36415; 80053; 82607; 82728; 82746; 83036; 83540; 83721; 84443; 85027

== ENCOUNTER 2024-09-13 13:29 | Outpatient (RCR) | payer OTHER, SELFPAY ==
--- NOTE | 2024-09-13 15:15 | MHC.SP.ADU ---
Referring provider: Francheska Ulrich [facility] Reason for Referral: s/p L-MCA CVA 11/2022 Type of Treatment: 49492 Evaluation Speech Sound Production WITH Language Date of Plan of Treatment: 09/13/24 Onset of Symptoms/Illness: 12/18/23 Date Treatment Started: 09/13/24 Medical Diagnosis: Cerebrovascular accident (CVA) due to embolism of left middle cerebral artery I63.412 Primary Speech Language Diagnosis: Other Secondary Speech Language Diagnosis: History Per recent PCP dated 08/04/24: 59-year-old female with ischemic stroke (11/2023) with right hemiparesis RUE, facial droop & slurred speech, hypertension, seasonal allergies, CAD, dilation of ascending aorta, LVH , obesity, obstructive sleep apnea and borderline nocturnal hypoxemia. s/p Uterine fibroid removal 05/2000, LEEP, adhesion removal, Right ovary spared s/p ROSETTA Social: 32 y/o special needs step dtr who lives w/ her 12/18/2023 MRI without sumaya showed acute infarct involving the left basal ganglia and adjacent white matter, scattered nonspecific FLAIR hyperintensity in the white matter most likely chronic small-vessel disease 12/19/23 Echocardiogram shows ascending aorta at the upper limit of normal 3.6 cm, mitral valve mildly calcified, trace mitral regurg, right coronary cusp mildly calcified, mobile atrial septum but does not meet the criteria for intra atrial aneurysm, ejection fraction 55-60%, mild concentric LVH 12/19/23 CT angio of the head shows mild mural calcifications in the right proximal internal carotid artery. Per Pt this referral was initiated in April after her first follow-up visit with her PCP. She had some hand OT at [facility], but this was during a time when they did not have an Outpatient BOWLING BALL MARKER available. Since her initial presentation she reports only mild symptoms currently including difficulty grasping thin pens/pencils, slurred Speech at night, and difficulty multitasking at work. She lives in a 4 generation home with her Father, , children, and great-grandchildren. Medical History: Other: CAD in [place] artery I25.10 Primary hypertension I10 Hypertension type: primary hypertension Hypertensive cardiomegaly I11.9 Ascending aorta dilation I77.810 Cerebrovascular accident (CVA) due to embolism of left middle cerebral artery I63.412 CVA mechanism: embolism Laterality of affected vessel: left Precerebral and cerebral artery: middle cerebral artery Osteopenia of multiple sites M85.89 Osteopenia location: multiple sites Seasonal allergies J30.2 CHRISTIAN on CPAP G47.33 Medication List: Recent Hospitalizations: No Respiratory Needs: Room Air Patient Orientation: Alert & Oriented x 4 Social History: 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 Other Therapies Seen in Current Calendar Year: Occupational Therapy Swallowing History: Dysphagia Specific: Within Functional Limits Comments: Pre-eval Risk for Aspiration: None Pre-evaluation Dietary Consistencies: Regular Pre-eval Liquid Intake: Thin Pre-eval Medication Intake: Crushed with Puree Reported Speech, Language, Cognition difficulties: Attention Cognition Problem Solving Quality of Life: Reports she notices difficulty at work that used to come easy to her. Patient Stated Goal of Speech-Language Therapy: Assess candidacy for Speech Therapy. Assessment Speech Production: Within Functional Limits Clinical Impression: Intact Observations: Pt does complain of increased difficulty slurring her Speech if she is tired. Informal Voice Assessment: Voice Loudness: Normal Voice Nasal Resonance: Normal Voice Oral Resonance: Normal Voice Phonatory-based Quality: Normal Voice Pitch: Normal Voice Other Observations: Clinical Impression: Intact Clinicial Observations: Tests of Speech & Lang Adults: Clinical Impression: Did Not Test Observations: Testing not indicated. Primary deficits identified as higher-level thinking. Tests of Cognition: RBANS Clinical Impression: Intact The RBANS is considered a screening battery for cognitive function and is repeatable for the purpose of evaluating any changes in function. It is intended for use with adolescents and adults, ages 12 to 89 years. Composite domains assessed in this test are: Immediate Memory, Visuospatial/Constructional, Language, Attention, and Delayed Memory. Her scores are tabled below: R-BANS Update I.) Immediate Memory Index: 94 Ia.) List Learning: -- Scaled Score: 7 Ib.) Story Memory: -- Scaled Score: 11 The Immediate Memory Index measures, ?initial encoding and learning of complex and simple verbal information. Low scores on this index indicated difficulties with verbal learning.? The score is derived from the participant?s performance on the subtests List Learning and Story Memory. List Learning measures, ?rote verbal memory function.? Participants are asked to repeat back a list of ten words presented to them verbally across four trials. Poor performance on this subtest indicates that, ?the examinee may have difficulty learning new verbal information and that repetition may not be beneficial?, if they do not improve across trials. The Story Memory subtest measures, ?memory for conceptually related verbal information.? Here, a short story is read to them across two trials and they are asked to recall details from the story. ?The test is a measure of verbal memory functioning for information that is related?. As with List Learning, participants that do not demonstrate a positive learning curve across trials could indicate, ?difficulty with learning new verbal learning, and that repetition may not help, or that the examinee may have difficulty retrieving new information from memory. II.) Visuospatial/Constructional Index: 109 IIa.) Figure Copy: -- Scaled Score: 8 IIb.) Line Orientation: -- Percentile Group: >75 The Visuospatial/Constructional Index is derived from the Figure Copy and Line Orientation subtests. It measures, ?basic visuospatial perception and the ability to copy a design from a model?. Low performance with this index can indicate, ?difficulties with processing and using visuospatial information?, or, ?visual impairments or attention disorders such as monica neglect?. The Figure Copy subtest requires the examinee to copy a complex geometrical design from a model that is present throughout the task. ?This requires many cognitive skills including visuospatial reasoning, attention to visual details, motor programming, and to a lesser degree, organization and fine-motor ability?. Points are given for specific details, as well as specific placement in the context of the entire image. The Line Orientation subtest measures, ?the examinee?s ability to correctly identify spatial orientation in two-dimensions?. Poor performance indicates significant visuospatial impairments in acuity and attention. III.) Language Index: 102 IIIa.) Picture Naming: -- Percentile Group: 51-75 IIIb.) Semantic Fluency: -- Scaled Score: 11 The Language Index is, ?a measure of expressive language functioning?. Low scores with this subtest ?would indicate difficulties with language functioning? and, ?while the overall score would still indicate language difficulties, the deficits may be more related to fluency versus naming skills.? The Picture Naming subtest is provided by showing the participant a series of 10 simple line drawing and asking them to name them. The Semantic Fluency subtest is a measure of, ?the examinee?s ability to retrieve and express words using a semantic prompt?. In brief, the examinee is given a category and asked to name as many exemplars as they can in 60 seconds. Low scores, ?indicate significantly impaired ability to retrieve and express verbal information from long-term memory stores?. IV.) Attention Index: 115 Francisco.) Digit Span: -- Scaled Score: 12 IVb.) Coding: -- Scaled Score: 12 The Attention Index is a derived from the Digit Span and Coding subtests. It is a measure of, ?simple auditory registration, visual scanning and processing speed. Low scores on this index indicate, ?difficulties with basic attention and processing speed?. Difficulties can vary between the subtests suggesting acute differences between auditory and visual processing and attention. Digit Span is a measure of, ?auditory registration and brief focused attention. Low scores can also indicate difficulties with auditory attention and registration?. In it, the examinee is read a series of single digit numbers and asked to repeat them back in the same order. ?Impairments in auditory acuity can also influence performance on this test?. Coding is a measure of, ?brief, focused, visual attention, visual scanning and processing speed?. In it, the examinee is given a torres at the top of the page where each symbol is associated with a different number. The examinee is then asked to fill out as many numbers to corresponding symbols as they can in 90 seconds. In incorporates the notion of diligence and sustained attention as well. Difficulties can indicate problems with, ?processing speed and focused visual attention?. V.) Delayed Memory Index: 105 Va.) List Recall: -- Percentile Group: 26-50 Vb.) List Recognition: -- Percentile Group: 51-75 Vc.) Story Recall: -- Scaled Score: 8 Vd.) Figure Recall: -- Scaled Score: 14 The Delayed Memory Index is derived by combining the subtest scores for List Recall, Story Recall, and Figure Recall, and cross-referencing them with the List Recognition subtest. Auditory and Visual subtest are combined together. Difference between subtests can be highlighted to provide more specific information about areas of deficit and strength. ?The deficits, may be more related to verbal more than visual memory, or free recall as opposed to recognition memory or general variability in memory functioning.? .) Total Scale Score: 104 (%ile=61) Impressions and Recommendations Morenita was effortful and understanding throughout testing today. Her scores demonstrate a performance in the Average Range across domains with the exception of an elevated score on Attention (OS=810). There was not significant difference between her immediate and delayed recall performance suggesting intact encoding of new information. In immediate and delayed conditions she did have more difficulty with List Learning subtests indicating residual deficits in processing verbal information. However this did not meet the criteria for medical necessity as she is also able to bring in a considerable amount of compensatory strategies on her behalf. Though she notices changes in her work performance. None of her collegues or superiors have had any problems with her performance. Skilled outpatient Speech Therapy is not indicated at this time as she does not fit the criteria for medical necessity. She is encouraged to keep up with other areas of brain health including exercise and sleep. Augmentative and Alternative Communication: Did Not Test Observations: Testing not indicated. Impressions and Recommendations Summary: Impact on Daily Function/Activity Limitations: Daily Activities: Mild Interpersonal Interactions: None Education: None Employment: Mild Community: None Prognosis for Improvement: Good Recommendation for Speech Therapy: NA:Typical Evaluation Frequency/Duration: N/a Date Range for Service Requested: N/a Time to Reassess: PRN Recommended Referrals to be Discussed with Primary Care Provider: Other: See Comment Follow-up with referring provider. Patient Education: Completed: Yes Patient/Caregiver Education: Described Results of Evaluation Patient expressed understanding of evaluation Patient agrees with goals and treatment plan Comments/Barriers to Learning: N/a Rn Labor And Delivery Clinican/Clinical Fellow: No Supervisory Statement: N/A Speech Language Pathologist: Julian Fleming M.A., CCC-BOWLING BALL MARKER
== END 2024-09-14 10:28 | disposition home or self-care (01) ==
LOC: HO.SH 13:29
PROVIDERS: Visit Provider Nurse Practitioner Family
DX: I63.9 Cerebral infarction, unspecified (principal)
CPT/HCPCS: 92523

== ENCOUNTER → 2024-09-27 16:14 | Outpatient (AMB) | payer OTHER, SELFPAY ==
--- NOTE | 2024-09-27 16:32 | MHC.PC.OV ---
Intake Visit Reasons: Achy joints since starting atorvastatin Allergies clarithromycin [From Biaxin] Allergy (Unknown, Verified 09/27/24 16:33) throat closes Fish Containing Products Allergy (Unknown, Verified 09/27/24 16:33) Migraine Penicillins Allergy (Unknown, Verified 09/27/24 16:33) itchy Medication List - Last Reconciled 09/27/24 by Francheska Ulrich, [facility]- amlodipine 10 mg PO DAILY aspirin 81 mg PO DAILY atorvastatin 80 mg PO BEDTIME calcium carbonate-vitamin D3 600 mg-12.5 mcg (500 unit) (Calcium with Vit D3) 1 cap PO BID carvedilol 6.25 mg PO BID cranberry conc-ascorbic acid 12,600-20 mg caps PO loratadine (Allergy Relief (loratadine)) 10 mg PO DAILY Tobacco use date assessed: 04/30/24 Dental Screening Dental Screen Date: 04/30/24 HPI HPI Comments History of Present Illness Details 59-year-old female with ischemic stroke (11/2023) with right hemiparesis RUE, facial droop & slurred speech, hypertension, seasonal allergies, CAD, dilation of ascending aorta, LVH , obesity, CHRISTIAN (needs CPAP ?? started yet)obstructive sleep apnea and borderline nocturnal hypoxemia s/p Uterine fibroid removal 05/2000, LEEP, adhesion removal, Right ovary spared s/p ROSETTA Social: 32 y/o special needs step dtr who lives w/ her Telehealth visit today for c/o joint aches and swelling of lower ext When first on atorvastatin, was having intermittent joint aches. Advised by Neuro to stay on it. She did & was ok for some time. However, the last 3-4 weeks, bilat hips and knees are killing her; Feels like work out beyond relief.; Difficulty standing straight as she feels stiff. This is assoc w/ some edema BLE that comes and goes. Denies sob or cardiac sx. She wonders if it has anything to do w/ the Ca+D as this is the only new med that she started before onset of her sx Using CPAP every night, getting used to it. Not as bad as she thought it would be. Plan Check labs and f/u with her once results are back. Recommendations after labs are back. This note is constructed using voice recognition software. While every effort has been made to ensure accuracy in farm loan representative, still errors may have been included Sometimes, these errors may affect the content or meaning of the given sentence . Total time spent caring for the patient today was 15 minutes. 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 Kleber Ulloa, Elsy Crystal, Alfred Segovia and colleagues, with an educational mary from [employer]. Physical exam (Primary Care) Tobacco/Smoking Status: Tobacco use Status Tobacco use date assessed 04/30/24 08/04/24 09:00 Patient Tobacco Use Status Never used Tobacco 08/04/24 09:00 Thrive Assessment: Date of Thrive Assessment Date Thrive assessed 04/30/24 08/04/24 09:00 Telehealth Telehealth Telehealth Platform: [facility] Location of provider rendering services: practice address Location of patient: address on file Patient Identification confirmed using: Name, : Yes Telehealth method: voice only Patient verbally consented to treatment: Yes Patient verbally consented to billing insurance company: Yes Patient informed of any privacy concerns related to visit: Yes Minutes spent on Phone/Video with Pt.: 11 Coding Level of Care Code Tele Est Pt Level 2 (17024) Complex EM visit Add On G2211 Diagnoses Myalgia M79.10 Edema of both lower extremities R60.0 Assessment & Plan Assessment & Plan (1) Myalgia: Code(s): M79.10 - Myalgia, unspecified site Category: Medical (2) Edema of both lower extremities: Code(s): R60.0 - Localized edema Category: Medical Plan . Orders: Orders Calcium, Ionized Today M79.10 - Myalgia, unspecified site, R60.0 - Localized edema Comprehensive Met. Panel Today M79.10 - Myalgia, unspecified site, R60.0 - Localized edema CK, Total+Isoenzymes, Serum Today M79.10 - Myalgia, unspecified site, R60.0 - Localized edema NT-proBNP Today M79.10 - Myalgia, unspecified site, R60.0 - Localized edema
== END ==
LOC: HO.HMCFM 16:14
PROVIDERS: PCP Nurse Practitioner Family; Visit Provider Nurse Practitioner Family
DX: M79.10 Myalgia, unspecified site (principal); R60.0 Localized edema

== ENCOUNTER 2024-09-28 08:14 | Outpatient (REF) | payer OTHER, SELFPAY ==
[2024-09-28 10:27] LABS: Alanine Aminotransferase 40 U/L (0-31); Albumin Level 4.1 g/dL (3.5-5.0); Alkaline Phosphatase 94 U/L (39-117); Anion Gap 10 (12-20); Aspartate Amino Transferase 31 U/L (5-31); Bilirubin Total 0.8 mg/dL (0.0-1.0); Blood Urea Nitrogen 12 mg/dL (9-16); Calcium 9.8 mg/dL (8.4-10.2); Carbon Dioxide 31 mmol/L (22-29); Chloride 106 mmol/L (96-108); Estimated Glomerular Filt Rate > 60; Glucose Random 96 mg/dL (60-115); Potassium 3.8 mmol/L (3.3-5.1); Sodium 143 mmol/L (135-145); Total Protein 7.2 g/dL (6.5-8.0)
[2024-09-30 13:33] LABS: Calcium, Ionized 5.3 mg/dL (4.7-5.5)
[2024-10-01 22:52] LABS: NT-proBNP 81 pg/mL (<125)
[2024-10-07 20:48] LABS: CK-BB None Detected (None Detected); CK-MB 0 % (<5); CK-MM 100 % (95-100); Creatine Kinase,Total,Serum 77 U/L (29-143)
== END 2024-09-28 08:15 | disposition home or self-care (01) ==
LOC: HO.HMGCLDS 08:14
PROVIDERS: PCP Nurse Practitioner Family; Visit Provider Nurse Practitioner Family
DX: M79.10 Myalgia, unspecified site (principal); R60.0 Localized edema
CPT/HCPCS: 36415; 80053; 82330; 82552; 83880

== ENCOUNTER 2024-11-24 08:24 | Outpatient (AMB) | payer OTHER, SELFPAY ==
--- NOTE | 2024-11-24 08:27 | A.OFFPC_ITS ---
Vital Signs 11/24/24 08:32 Height 5 ft 1 in Weight 200 lb 6 oz BMI 37.9 BP 118/70 Blood Pressure Location Rt brachial Position Sitting Respiration 12 Pulse 60 Pulse Source Pulse Oximeter Temp 97.1 F Temp Source Oral Pulse Oximetry (%) 99 Oxygen Delivery Method Room Air Intake Visit Reasons: 3-4 mo 30 min routine complex fu Intake Note: routine follow up Support Teacher Required: No Allergies clarithromycin [From Biaxin] Allergy (Unknown, Verified 11/24/24 08:40) throat closes Fish Containing Products Allergy (Unknown, Verified 11/24/24 08:40) Migraine Penicillins Allergy (Unknown, Verified 11/24/24 08:40) itchy Medication List - Last Reconciled 11/24/24 by Francheska Ulrich, URANIUM PROCESSING SUPERVISOR- amlodipine 10 mg PO DAILY aspirin 81 mg PO DAILY atorvastatin 80 mg PO BEDTIME carvedilol 6.25 mg PO BID cetirizine (All Day Allergy (cetirizine)) 10 mg PO DAILY PRN cranberry conc-ascorbic acid 12,600-20 mg caps PO Tobacco use date assessed: 11/24/24 Dental Screening Dental Screen Date: 04/30/24 HPI HPI Comments History of Present Illness Details 59-year-old female with ischemic stroke (11/2023) with right hemiparesis RUE, facial droop & slurred speech, hypertension, seasonal allergies, CAD, dilation of ascending aorta, LVH , obesity, obstructive sleep apnea and borderline nocturnal hypoxemia, osteopenia s/p Uterine fibroid removal 05/2000, LEEP, adhesion removal, Right ovary spared s/p ROSETTA Social: 32 y/o special needs step dtr who lives w/ her 12/18/2023 MRI without brett showed acute i nfarct involving the left basal ganglia and adjacent white matter, scattered nonspecific FLAIR hyperintensity in the white matter most likely chronic small-vessel disease 12/19/23 Echocardiogram shows ascending a dodie at the upper limit of normal 3.6 cm, mitral valve mildly calcified, trace mitral regurg, right coronary cusp mildly calcified, mobile atrial septum but does not meet the criteria for intra atrial aneurysm, ejection fraction 55-60%, mild concentric LVH 12/19/23 CT angio of the head shows mild mural calcifications in the right proximal internal carotid artery Specialists Neuro/Sleep @ [facility] Cards [facility] Cards per request. Cleared from future f/u. Optho - wears glasses and is est w/ Eye doc and UTD one exams Health Maintenance: Colon has never had colon, denies family hx ,cologaurd 05/11/2024 negative repeat 3 years . Mammo - 05/2024 WNL Dexa 06/03/24 Osteopenia based on the lowest T-score value of -1.6 in the lumbar spine applying World Health Organization criteria (2025) Tdap 04/30/24 Flu UTD Here today for routine fu of complex conditions CHRISTIAN on CPAP: doing well on the CPAP. Using QD. Sleep MD ordered nocturnal testing - pending. Last appt in Oct 2024. Does have some hiccups since use of CPAP. Working w/ Sleep MD on this. Allergies: Zyrtec or Xyzal: Started using Zyrtec this is better; She cont w/ some congestion @ times. Sparing and occasional decongestants Osteopenia: cannot tolerate CA+D caused muscles aches/cramps; this is better. Started MVI and is tolerating this. At end of day swelling BLE R>L On norvasc Blood pressure well controlled on carvedilol and Norvasc Lipids at goal on atorvastatin 80 mg Cont to have the tingling sensations. She called Neuro and told she was cleared from fu. Worse when looking up. Since stroke, has tingling sensation between shoulders. R arm cont to be weak, although stronger, this comes and goes. If she catches the sensation in between shoulder blades early and able to move, this helps and prevents the sx from spreading to the arms. Never both arms at the same time. Exam: General: Well developed, well nourished, in no acute distress. Appears stated age. Head: Normocephalic, atraumatic. Eyes: Pupils are equal, round and reactive to light and accommodation. Conjunctivae are clear. Vision grossly normal. Ears: Mild congestion R TM albeit improved, L tm intact and clear, EAC clear bilat Neck: Supple, no adenopathy or thyromegaly. Lungs: Clear to auscultation bilaterally. No rales, rhonchi or wheeze noted. Good air flow in all van. Heart: Regular rate and rhythm. No murmurs, click, rubs or gallops are noted. Extremities: No clubbing, cyanosis is noted. Trace edema bilateral lower extremities, nonpitting, varicosities bilat, spider veins worse on left ankle, edema R>L MSK: Pain with palpation over C-spine and paraspinally bilat, she has pain with palpation over the tops of her shoulders as well, right upper extremities neurovascularly intact Neurologic: Gait and station normal. Right facial droop 4/5 RUE otherwise Motor strength grossly symmetrical and intact. No sensory loss. Balance normal. Plan: Cont using Zyrtec Discussed MRI of c and t spine VS referral to pain mgmt for eval vs starting PT. She wishes for Pain mgmt eval first. HOLD norvasc and start olmesartan 10mg QD. Monitor BP at home. See if this helps the swelling in lower ext. Continue all other medications as prescribed Continue follow up with care team RTO 2 weeks for BP and edema recheck. Reach out sooner via the portal w/ any issues. This note is constructed using voice recognition software. While every effort has been made to ensure accuracy in dehydrator, still errors may have been included Sometimes, these errors may affect the content or meaning of the given sentence . Total time spent caring for the patient today was 49 minutes. This includes time spent before the visit reviewing the chart, time spent during the visit, and time spent after the visit on documentation, reviewing laboratory results, diagnostic imaging, medications, performing a medically necessary evaluation, counseling on diagnoses, care coordination, ordering appropriate tests, ordering appropriate medications, review of tests performed by other providers, reporting test results with the patient, communication with other healthcare providers. 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 1. Little interest or pleasure in doing things: not at all 2. Feeling down, depressed, or hopeless: not at all 3. Trouble falling or staying asleep, or sleeping too much: not at all 4. Feeling tired or having little energy: several days 5. Poor appetite or overeating: not at all 6. Feeling bad about yourself - or that you are a failure or have let yourself or your family down: not at all 7. Trouble concentrating on things, such as reading the newspaper or watching television: not at all 8. Moving or speaking so slowly that other people could have noticed. Or the opposite - being so fidgety or restless that you have been moving around a lot more than usual: not at all 9. Thoughts that you would be better off or of hurting yourself in some way: not at all Total score: 1 Depression Screening Interpretation: Negative Depression Screening Done: Yes 10345 - PHQ-9 Billing: Yes Source: Developed by Drs. Kleber Ulloa, Elsy Crystal, Alfred Segovia and colleagues, with an educational mary from [employer]. Thrive Questionnaire Date Thrive assessed: 11/24/24 I am a: Patient What is your living situation today?: I have a steady place to live Within the past 12 months, did the food you bought not last and you didn't have the money to get more?: Never true Within the past 12 months, did you worry whether your food would run out before you got money to buy more?: Never true Do you have trouble paying for medicines?: No Do you have trouble getting transportation to medical appointments?: No Do you have trouble paying your heating and electricity bill?: No Do you have trouble taking care of your child, family member or friend?: No Do you have trouble with day-to-day activities such as bathing, preparing meals, shopping, managing finances, etc.?: No Are you currently unemployed and looking for a job?: No Are you interested in more education?: No Please select the resources that you would like help with: None Currently or been in a relationship where the following occur: No concerns reported THRIVE Score: 0 AUDIT C Alcohol Use Questionnaire (AUDIT-C) 1. How often do you have a drink containing alcohol?: Monthly or less 2. How many drinks containing alcohol do you have on a typical day when you are drinking?: 1 or 2 3. How often do you have six or more drinks on one occasion?: Never Total Score: 1 Score Reviewed/Action Taken: Yes BRETT-7 AMB Questionnaire BRETT-7 Date BRETT - 7 assessed: 11/24/24 Feeling nervous, anxious, or on edge: 0 = Not at all Not being able to stop or control worryin = Not at all Worrying too much about different things: 0 = Not at all Trouble relaxin = Not at all Being so restless that it is hard to sit still: 0 = Not at all Becoming easily annoyed or irritable: 0 = Not at all Feeling afraid as if something awful might happen: 0 = Not at all Total BRETT-7 score (0-4 normal; 5-9 mild; 10-14 moderate; 15-21 severe): 0 Source: Developed by Drs. Kleber Ulloa, Elsy Crystal, Alfred Segovia and colleagues, with an educational mary from [employer]. BRETT-7 Assessment Billing BRETT-7 Assessment Tool: BRETT-7 Assessment 17095 Physical exam (Primary Care) Vital Signs: Last Vital Signs Temp 97.1 F 11/24/24 08:32 Pulse 60 11/24/24 08:32 Resp 12 11/24/24 08:32 BP 118/70 11/24/24 08:32 Pulse Ox 99 11/24/24 08:32 Oxygen Delivery Method Room Air 11/24/24 08:32 BMI result Body Mass Index 37.9 BMI Assessment/Plan discussion: High BMI High, discussed plan: lifestyle Tobacco/Smoking Status: Tobacco use Status Tobacco use date assessed 11/24/24 11/24/24 08:30 Patient Tobacco Use Status Never used Tobacco 11/24/24 08:28 PHQ-9: PHQ-9 Score PHQ-9: Total score 1 11/24/24 08:55 Depression Screening Interpretation: Negative Thrive Assessment: Date of Thrive Assessment Date Thrive assessed 11/24/24 11/24/24 08:28 Currently or been in a relationship where the following occur: No concerns reported Coding Level of Care Code Est Pt Level 5 (42668) Complex EM visit Add On G2211 Diagnoses Paresthesia of arm R20.2 Upper back pain M54.9 Ascending aorta dilation I77.810 CAD in [place] artery I25.10 Cerebrovascular accident (CVA) due to embolism of left middle cerebral artery I63.412 CVA mechanism: embolism Laterality of affected vessel: left Precerebral and cerebral artery: middle cerebral artery Edema of both lower extremities R60.0 Primary hypertension I10 Hypertension type: primary hypertension Hypertensive cardiomegaly I11.9 Class 2 severe obesity due to excess calories with serious comorbidity and body mass index (BMI) of 36.0 to 36.9 in adult E66.01; Z68.36 Body mass index: BMI 36.0-36.9 Obesity classification: adult class 2 (BMI 35 - 39.9) Obesity type: due to excess calories CHRISTIAN on CPAP G47.33 Osteopenia of multiple sites M85.89 Osteopenia location: multiple sites Right hemiparesis G81.91 Seasonal allergies J30.2 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 R90.82; I99.9 BMI 37.0-37.9, adult Z68.37 Class 2 severe obesity due to excess calories with serious comorbidity and body mass index (BMI) of 37.0 to 37.9 in adult E66.812; E66.01; Z68.37 Obesity type: due to excess calories Serious obesity comorbidity presence: with serious comorbidity Additional Codes BRETT-7 Assessment Billing - BRETT-7 Assessment Tool: BRETT-7 Assessment 18130 ([id number]) PHQ-9 - 48665 - PHQ-9 Billing: Yes ([id number]) Assessment & Plan Assessment & Plan (1) Paresthesia of arm: Code(s): R20.2 - Paresthesia of skin Category: Medical (2) Upper back pain: Code(s): M54.9 - Dorsalgia, unspecified Category: Medical (3) Ascending aorta dilation: Comment: eh 12/19/23 3.6 cm Code(s): I77.810 - Thoracic aortic ectasia Category: Medical (4) CAD in [place] artery: Code(s): I25.10 - Atherosclerotic heart disease of [place] coronary artery without angina pectoris Category: Medical (5) CVA (cerebral vascular accident): Comment: left basal ganglia acute infarct and small microhemorrhage in the deep location from small vessel dz r/t uncontrolled HTN Code(s): I63.9 - Cerebral infarction, unspecified Category: Medical Qualifiers: CVA mechanism: embolism Laterality of affected vessel: left Precerebral and cerebral artery: middle cerebral artery Qualified Code(s): I63.412 - Cerebral infarction due to embolism of left middle cerebral artery (6) Edema of both lower extremities: Code(s): R60.0 - Localized edema Category: Medical (7) HTN (hypertension): Code(s): I10 - Essential (primary) hypertension Category: Medical Qualifiers: Hypertension type: primary hypertension Qualified Code(s): I10 - Essential (primary) hypertension (8) Hypertensive cardiomegaly: Comment: echo 12/19/23 LVH EF 55-60% Code(s): I11.9 - Hypertensive heart disease without heart failure Category: Medical (9) Obesity with serious comorbidity: Comment: with htn and cad Code(s): E66.9 - Obesity, unspecified Category: Medical Qualifiers: Body mass index: BMI 36.0-36.9 Obesity classification: adult class 2 (BMI 35 - 39.9) Obesity type: due to excess calories Qualified Code(s): E66.01 - Morbid (severe) obesity due to excess calories; Z68.36 - Body mass index [BMI] 36.0-36.9, adult (10) CHRISTIAN on CPAP: Comment: Managed by sleep medicine Code(s): G47.33 - Obstructive sleep apnea (adult) (pediatric) Category: Medical (11) Osteopenia: Code(s): M85.80 - Other specified disorders of bone density and structure, unspecified site Category: Medical Qualifiers: Osteopenia location: multiple sites Qualified Code(s): M85.89 - Other specified disorders of bone density and structure, multiple sites (12) Right hemiparesis: Comment: Sequela of CVA 12-18-23 Affecting right upper extremity, right facial droop Code(s): G81.91 - Hemiplegia, unspecified affecting right dominant side Category: Medical (13) Seasonal allergies: Code(s): J30.2 - Other seasonal allergic rhinitis Category: Medical (14) 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: Comment: MRI 11/2023 @ [facility] Code(s): R90.82 - White matter disease, unspecified; I99.9 - Unspecified disorder of circulatory system Category: Medical (15) BMI 37.0-37.9, adult: Code(s): Z68.37 - Body mass index [BMI] 37.0-37.9, adult Category: Medical (16) Class 2 obesity with body mass index (BMI) of 37.0 to 37.9 in adult: Comment: Hyperlipidemia and hypertension Code(s): E66.812 - Obesity, class 2; Z68.37 - Body mass index [BMI] 37.0-37.9, adult Category: Medical Qualifiers: Obesity type: due to excess calories Serious obesity comorbidity presence: with serious comorbidity Qualified Code(s): E66.812 - Obesity, class 2; E66.01 - Morbid (severe) obesity due to excess calories; Z68.37 - Body mass index [BMI] 37.0-37.9, adult Plan . Orders: Referrals Pain Management Referral M54.9 - Dorsalgia, unspecified, R20.2 - Paresthesia of skin Medications: New olmesartan 10 mg (2 x 5 mg) PO DAILY 60 tabs 0RF On Hold amlodipine Hold Comment: Doctor's Order 10 mg PO DAILY 90 tabs 0RF Patient Instructions: Plan: Cont using Zyrtec Discussed MRI of c and t spine VS referral to pain mgmt for eval vs starting PT. She wishes for Pain mgmt eval first. HOLD norvasc and start olmesartan 10mg QD. Monitor BP at home. See if this helps the swelling in lower ext. RTO 2 weeks for BP and edema recheck. Reach out sooner via the portal w/ any issues.
[2024-11-24 08:32] VITALS: BP 118/70; PULSE 60; RESP 12; TEMP 36.2; O2SAT 99; BMI 37.9
== END 2024-11-24 09:05 | disposition home or self-care (01) ==
PROVIDERS: PCP Nurse Practitioner Family; Visit Provider Nurse Practitioner Family
DX: G81.91 Hemiplegia, unspecified affecting right dominant side (principal); I11.9 Hypertensive heart disease without heart failure; I77.810 Thoracic aortic ectasia; I63.412 Cerebral infarction due to embolism of left middle cerebral artery; E66.01 Morbid (severe) obesity due to excess calories; Z68.36 Body mass index [BMI] 36.0-36.9, adult; R20.2 Paresthesia of skin; M54.9 Dorsalgia, unspecified; I25.10 Atherosclerotic heart disease of native coronary artery without angina pectoris; R60.0 Localized edema; I10 Essential (primary) hypertension; G47.33 Obstructive sleep apnea (adult) (pediatric)

== ENCOUNTER → 2024-11-24 08:24 | Outpatient (BNVA) | payer OTHER, SELFPAY | PROVIDERS: PCP Nurse Practitioner Family; Visit Provider Nurse Practitioner Family | DX: R20.2 Paresthesia of skin (principal); M54.9 Dorsalgia, unspecified; I77.810 Thoracic aortic ectasia; I25.10 Atherosclerotic heart disease of native coronary artery without angina pectoris; I63.412 Cerebral infarction due to embolism of left middle cerebral artery; R60.0 Localized edema; I10 Essential (primary) hypertension; E66.01 Morbid (severe) obesity due to excess calories; Z68.36 Body mass index [BMI] 36.0-36.9, adult; G47.33 Obstructive sleep apnea (adult) (pediatric); M85.89 Other specified disorders of bone density and structure, multiple sites; G81.91 Hemiplegia, unspecified affecting right dominant side; J30.2 Other seasonal allergic rhinitis; R90.82 White matter disease, unspecified; I99.9 Unspecified disorder of circulatory system; Z71.3 Dietary counseling and surveillance | CPT/HCPCS: 96127; 99212 ==

== ENCOUNTER 2024-12-06 13:15 | Outpatient (AMB) | payer OTHER, SELFPAY ==
--- NOTE | 2024-12-06 13:16 | MHC.OFFVIS ---
Vital Signs 12/06/24 13:18 Height 5 ft 1 in Weight 200 lb BMI 37.8 BP 189/90 H Blood Pressure Location Lt brachial Position Sitting Respiration 16 Pulse 68 Pulse Source Pulse Oximeter Pulse Oximetry (%) 98 Oxygen Delivery Method Room Air Intake Visit Reasons: Paresthesia of skin/Dorsalgia Major Gifts Manager Required: No Allergies clarithromycin [From Biaxin] Allergy (Unknown, Verified 12/06/24 13:19) throat closes Fish Containing Products Allergy (Unknown, Verified 12/06/24 13:19) Migraine Penicillins Allergy (Unknown, Verified 12/06/24 13:19) itchy Medication List - Last Reconciled 12/06/24 by Kayla Bentley LPN amlodipine 10 mg PO DAILY aspirin 81 mg PO DAILY atorvastatin 80 mg PO BEDTIME carvedilol 6.25 mg PO BID cetirizine (All Day Allergy (cetirizine)) 10 mg PO DAILY PRN cranberry conc-ascorbic acid 12,600-20 mg caps PO olmesartan 10 mg (2 x 5 mg) PO DAILY HPI HPI Paresthesia of skin/Dorsalgia: Details: History of Present Illness The patient is a 59-year-old female presenting with pins and needles sensation and numbness in her upper back and forearms. The symptoms started in June and have progressively become more frequent and bothersome. She rates her pain as 5/10, with exacerbation upon movements and relief provided by heat application. Symptom interference predominantly affects her sleep pattern, causing difficulty in maintaining comfort through the night. Physical examination during a prior encounter revealed augmented pain and tingling upon application of pressure on a specific upper back area. These findings suggest a likely cervical spine origin, correlating with potential nerve compression but are not fully substantiated by neurological investigation thus far. She has no prior physical therapy interventions, despite identifiable degenerative changes in the cervical spine and an osteopenic T-score of -1.6 from a previous bone density assessment. Current management includes daily aspirin consumption. Pain Description - Onset: June - Timing: Progressive frequency - Quality: Pins and needles sensation, numbness - Primary location: Between shoulder blades and bilateral forearms - Radiation: Up into the neck and alternating loss of sensation in arms - Exacerbating factors: Movement, sleeping - Relieving factors: Heat application, neck stretching - Interference: Sleep disturbance Physical Exam Appears afebrile. Alert and oriented. Mood and affect appropriate. Follows and participates in conversation appropriately. Respiratory effort is unlabored. Able to transition from sit to stand unassisted. Ambulates with bilaterally normal heel strike and toe off. Able to stand and walk on toes and heels. Results - Bone Density Scan: Osteopenia, T-score of -1.6 Pain Management - Affect: Pain interfering with sleep; does not affect mood discussion - Analgesia: Current medication is aspirin 81 mg daily; Pain intensity rated at 5/10 - Adverse Effects: None reported from current medication - Activities of Daily Living: Significant impact on sleep; functional goal to reduce pain and restore sleep - Aberrant Drug Related Behaviors: None reported [facility] Surgical History (Updated 04/30/24 @ 12:57 by CHASE Husain-) H/O myomectomy H/O LEEP H/O laparoscopy H/O vaginal hysterectomy Social History (Updated 04/30/24 @ 11:00 by Minal Kovacs CMA) Housing: House Patient Tobacco Use Status: Never used Tobacco Second Hand Smoke Exposure: No service: No Current occupational status: employed 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 Current occupational exposures/hazards: No Cognitive needs: No Hearing needs: No Vision needs: Yes (glasses ) Physical Exam Vital Signs: Last Vital Signs Pulse 68 12/06/24 13:18 Resp 16 12/06/24 13:18 BP 189/90 H 12/06/24 13:18 Pulse Ox 98 12/06/24 13:18 Oxygen Delivery Method Room Air 12/06/24 13:18 BMI result Body Mass Index 37.8 Assessment & Plan Assessment & Plan (1) Cervical radiculitis: Code(s): M54.12 - Radiculopathy, cervical region Category: Medical Plan Plan For the patient's complaint of pins and needles sensation and numbness, I plan to initiate physical therapy to address the suspected cervical radiculopathy due to disc degeneration. If her symptoms persist after two to three months of therapy, an MRI of the cervical spine will be considered to evaluate nerve compression. Osteopenia was noted, with no immediate intervention planned for this visit. Ergonomic and posture education was discussed to further alleviate exacerbating factors contributing to her symptoms. Patient was informed and verbally consented to the use of an ambient scribe for clinic note documentation during this visit. Discussion Notes I discussed with the patient that her symptoms are likely attributable to cervical radiculopathy potentially caused by cervical disc degeneration. I recommended beginning physical therapy as a conservative approach, emphasizing its role in symptom management. Postural and ergonomic adjustments were advised to aid in symptom relief. Should her condition fail to improve with therapy, we will pursue an MRI to further investigate nerve compression. I provided her with the contact information for [facility] and explained that consistent participation is crucial for determining if additional diagnostic measures are necessary. The patient verbally acknowledged understanding of this initial plan. Patient Instructions - Begin physical therapy at [facility], [address] [place] [address], as discussed. - Call [facility] at [phone] to schedule sessions. - Maintain ergonomic postures at work and use appropriate pillow support at home. - Monitor symptoms; if no improvement in two months, return for follow-up evaluation. - Utilize heat application to alleviate nighttime discomfort. - Continue current aspirin regimen unless otherwise directed. Orders: Orders PT Evaluation and Treatment Today M54.12 - Radiculopathy, cervical region Coding Level of Care Code New Pt Level 4 (17321) Diagnoses Cervical radiculitis M54.12
[2024-12-06 13:18] VITALS: BP 189/90; PULSE 68; RESP 16; O2SAT 98; BMI 37.8
== END 2024-12-06 13:55 | disposition home or self-care (01) ==
PROVIDERS: PCP Nurse Practitioner Family; Referring Provider Nurse Practitioner Family; Visit Provider Internal Medicine
DX: M54.12 Radiculopathy, cervical region (principal)
CPT/HCPCS: 99204

== ENCOUNTER → 2024-12-06 13:15 | Outpatient (BNVA) | payer OTHER, SELFPAY | PROVIDERS: PCP Nurse Practitioner Family; Referring Provider Nurse Practitioner Family; Visit Provider Internal Medicine | DX: M54.12 Radiculopathy, cervical region (principal) | CPT/HCPCS: 99202 ==

== ENCOUNTER 2024-12-10 09:48 | Outpatient (AMB) | payer OTHER, SELFPAY ==
--- NOTE | 2024-12-10 09:52 | MHC.PC.OV ---
Vital Signs 12/10/24 09:56 12/10/24 10:20 Height 5 ft 1 in Weight 201 lb 6 oz BMI 38.0 BP 150/80 H 146/80 H Blood Pressure Location Lt brachial Rt brachial Position Sitting Sitting Respiration 13 Pulse 58 Pulse Source Pulse Oximeter Temp 97.9 F Temp Source Oral Pulse Oximetry (%) 98 Oxygen Delivery Method Room Air Intake Visit Reasons: 2 weeks 30 min BP/edema rechk Intake Note: 2 weeks follow up on htn, patient also needs refill on meds Restaurant Kitchen Manager Required: No Allergies clarithromycin [From Biaxin] Allergy (Unknown, Verified 12/10/24 10:15) throat closes Fish Containing Products Allergy (Unknown, Verified 12/10/24 10:15) Migraine Penicillins Allergy (Unknown, Verified 12/10/24 10:15) itchy amlodipine [From Norvasc] Adverse Reaction (Mild, Verified 12/10/24 10:23) edema Medication List - Last Reconciled 12/10/24 by Francheska Ulrich, EDUCATION GENERAL MANAGER- aspirin 81 mg PO DAILY atorvastatin 80 mg PO BEDTIME carvedilol 6.25 mg PO BID cetirizine (All Day Allergy (cetirizine)) 10 mg PO DAILY PRN cranberry conc-ascorbic acid 12,600-20 mg caps PO olmesartan 10 mg (2 x 5 mg) PO DAILY Tobacco use date assessed: 12/10/24 Dental Screening Dental Screen Date: 12/10/24 Did you have a dental visit in the last 12 months?: No Did you have a dental problem in the last 6 months where you did not have access to dental care?: No Was dental information given to patient?: Patient has dentist HPI HPI Comments History of Present Illness Details 59-year-old female with ischemic stroke (11/2023) with right hemiparesis RUE, facial droop & slurred speech, hypertension, seasonal allergies, CAD, dilation of ascending aorta, LVH , obesity, obstructive sleep apnea and borderline nocturnal hypoxemia, osteopenia s/p Uterine fibroid removal 05/2000, LEEP, adhesion removal, Right ovary spared s/p ROSETTA Social: 30 y/o special needs step dtr who lives w/ her - The patient is a 59-year-old female presenting with follow-up for blood pressure management and assessment of peripheral edema. - At the last visit, the patient was switched from amlodipine to olmesartan due to bilateral lower extremity edema potentially linked to amlodipine. The edema improved significantly following this change. - Home blood pressure readings have been consistent, predominantly in the 120s, with an office reading of 146/80 today. - The patient experienced discomfort with past swelling, including difficulty shaving due to tight skin. Exam: General: Well developed, well nourished, in no acute distress. Appears stated age. Head: Normocephalic, atraumatic. Heart: BP recheck as recorded Extremities: No clubbing, cyanosis is noted. No edema bilateral lower extremities, varicosities bilat, spider veins worse on left ankle, right leg a little bigger than L (baseline) Discussion Notes I discussed the patient's hypertension and the notable improvement in peripheral edema following the discontinuation of amlodipine and initiation of olmesartan. I proposed increasing the dosage of olmesartan to 20 mg once daily, while monitoring for hypotensive symptoms. I advised utilizing existing 5 mg tablets to reach the 20 mg dosage before prescribing a higher dose tablet. The potential side effects of olmesartan treatment were explained, and the patient was tasked with alerting me of any symptomatic hypotension, with adjustments made as necessary. I also addressed the prior appointments' issues and suggested that consultation with nurse practitioners at the facility could result in more thorough evaluations. The patient was made aware of the allergy listing for amlodipine to prevent future prescription errors. Follow-up is encouraged upon my return. Assessment and Plan 59-year-old female with a history of essential hypertension presenting with follow-up for blood pressure management and evaluation of peripheral edema. After switching from amlodipine to olmesartan, significant improvement in edema is observed, substantiating amlodipine's suspected role. Home blood pressure control is generally adequate, though office readings suggest the need for further adjustment. Patient dissatisfaction with previous care highlights need for more comprehensive evaluations. 1. Peripheral Edema Monitor ongoing improvement after amlodipine discontinuation. Maintain current management plan unless symptoms return. 2. Essential Hypertension Increase olmesartan to 20 mg daily with current tablets. Monitor home readings and report hypotensive symptoms. Reassess in two weeks. Patient Instructions - Continue to monitor your blood pressure at home and keep track of readings. - Take four 5 mg olmesartan tablets in the morning to reach a 20 mg dosage. - Be aware of any symptoms such as dizziness or fainting. If experienced, reduce dosage to 15 mg and contact the clinic. - Inform the clinic if home blood pressure readings consistently fall below 100. - Follow through with physical therapy as scheduled and discuss any concerns with the provider you see next. Consent Formal consent was obtained for management plan adjustments, including the escalation of olmesartan dosage from 10 mg to 20 mg. Understanding of potential side effects, such as hypotension, was confirmed. The patient agreed with the proposed treatment alteration and the plan to monitor her response. Consent was secured verbally in-office. Patient was informed and verbally consented to the use of an ambient scribe for clinic note documentation during this visit. Total time spent caring for the patient today was 30 minutes. This includes time spent before the visit reviewing the chart, time spent during the visit, and time spent after the visit on documentation, reviewing laboratory results, diagnostic imaging, medications, performing a medically necessary evaluation, counseling on diagnoses, care coordination, ordering appropriate tests, ordering appropriate medications, review of tests performed by other providers, reporting test results with the patient, communication with other healthcare providers. 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 64090 - PHQ-9 Billing: Patient declined-do not bill Source: Developed by Drs. Kleber Ulloa, Elsy Crystal, Alfred Segovia and colleagues, with an educational mary from [employer]. Thrive Questionnaire Date Thrive assessed: 12/10/24 I am a: Patient What is your living situation today?: I have a steady place to live Within the past 12 months, did the food you bought not last and you didn't have the money to get more?: Never true Within the past 12 months, did you worry whether your food would run out before you got money to buy more?: Never true Do you have trouble paying for medicines?: No Do you have trouble getting transportation to medical appointments?: No Do you have trouble paying your heating and electricity bill?: No Do you have trouble taking care of your child, family member or friend?: No Do you have trouble with day-to-day activities such as bathing, preparing meals, shopping, managing finances, etc.?: No Are you currently unemployed and looking for a job?: No Are you interested in more education?: No Please select the resources that you would like help with: None Currently or been in a relationship where the following occur: No concerns reported THRIVE Score: 0 BRETT-7 AMB Questionnaire BRETT-7 Date BRETT - 7 assessed: 12/10/24 Feeling nervous, anxious, or on edge: 0 = Not at all Not being able to stop or control worryin = Not at all Worrying too much about different things: 0 = Not at all Trouble relaxin = Not at all Being so restless that it is hard to sit still: 0 = Not at all Becoming easily annoyed or irritable: 0 = Not at all Feeling afraid as if something awful might happen: 0 = Not at all Total BRETT-7 score (0-4 normal; 5-9 mild; 10-14 moderate; 15-21 severe): 0 Source: Developed by Drs. Kleber Ulloa, Elsy Crystal, Alfred Segovia and colleagues, with an educational mary from [employer]. BRETT-7 Assessment Billing BRETT-7 Assessment Tool: BRETT-7 Assessment 92538 Physical exam (Primary Care) Vital Signs: Last Vital Signs Temp 97.9 F 12/10/24 09:56 Pulse 58 12/10/24 09:56 Resp 13 12/10/24 09:56 BP 150/80 H 12/10/24 09:56 Pulse Ox 98 12/10/24 09:56 Oxygen Delivery Method Room Air 12/10/24 09:56 BMI result Body Mass Index 38.0 Tobacco/Smoking Status: Tobacco use Status Tobacco use date assessed 12/10/24 12/10/24 09:53 Patient Tobacco Use Status Never used Tobacco 12/10/24 09:53 e-Cigarette/Vaping Use Never Used 12/10/24 09:53 Thrive Assessment: Date of Thrive Assessment Date Thrive assessed 12/10/24 12/10/24 09:53 Currently or been in a relationship where the following occur: No concerns reported Coding Level of Care Code Est Pt Level 4 (89094) Complex EM visit Add On G2211 Diagnoses Edema of both lower extremities R60.0 Primary hypertension I10 Hypertension type: primary hypertension Additional Codes BRETT-7 Assessment Billing - BRETT-7 Assessment Tool: BRETT-7 Assessment 11021 ([id number]) Assessment & Plan Assessment & Plan (1) Edema of both lower extremities: Comment: [facility] s[facility]p [facility] Code(s): R60.0 - Localized edema Category: Medical (2) HTN (hypertension): Code(s): I10 - Essential (primary) hypertension Category: Medical Qualifiers: Hypertension type: primary hypertension Qualified Code(s): I10 - Essential (primary) hypertension Plan: . Plan . Medications: Refilled carvedilol 6.25 mg PO BID 180 tabs 0RF
[2024-12-10 09:56] VITALS: BP 150/80; PULSE 58; RESP 13; TEMP 36.6; O2SAT 98; BMI 38.0
[2024-12-10 10:20] VITALS: BP 146/80
== END 2024-12-10 10:24 | disposition home or self-care (01) ==
PROVIDERS: PCP Nurse Practitioner Family; Visit Provider Nurse Practitioner Family
DX: R60.0 Localized edema (principal); I10 Essential (primary) hypertension

== ENCOUNTER → 2024-12-10 09:48 | Outpatient (BNVA) | payer OTHER, SELFPAY | PROVIDERS: PCP Nurse Practitioner Family; Visit Provider Nurse Practitioner Family | DX: R60.0 Localized edema (principal); I10 Essential (primary) hypertension | CPT/HCPCS: 96127; 99212 ==

== ENCOUNTER 2024-12-24 09:26 | Outpatient (AMB) | payer OTHER, SELFPAY ==
--- NOTE | 2024-12-24 09:28 | MHC.PC.OV ---
Vital Signs 12/24/24 09:32 12/24/24 09:48 Height 5 ft 1 in Weight 204 lb 2 oz BMI 38.6 BP 152/80 H 124/72 Blood Pressure Location Lt brachial Lt brachial Position Sitting Sitting Respiration 13 Pulse 58 Pulse Source Pulse Oximeter Temp 97.1 F Temp Source Oral Pulse Oximetry (%) 98 Oxygen Delivery Method Room Air Intake Visit Reasons: 2 weeks FU HTN/med change Intake Note: follow up on htn and med change, patient wants to know if you can order imaging requested by PT. Peer Specialist Required: No Allergies clarithromycin [From Biaxin] Allergy (Unknown, Verified 12/24/24 09:45) throat closes Fish Containing Products Allergy (Unknown, Verified 12/24/24 09:45) Migraine Penicillins Allergy (Unknown, Verified 12/24/24 09:45) itchy amlodipine [From Norvasc] Adverse Reaction (Mild, Verified 12/24/24 09:45) edema Medication List - Last Reconciled 12/24/24 by Francheska Ulrich, NET WASHER- aspirin 81 mg PO DAILY atorvastatin 80 mg PO BEDTIME carvedilol 6.25 mg PO BID cetirizine (All Day Allergy (cetirizine)) 10 mg PO DAILY PRN cranberry conc-ascorbic acid 12,600-20 mg caps PO olmesartan 10 mg (2 x 5 mg) PO DAILY Tobacco use date assessed: 12/24/24 Dental Screening Dental Screen Date: 12/10/24 Did you have a dental visit in the last 12 months?: Yes Did you have a dental problem in the last 6 months where you did not have access to dental care?: No Was dental information given to patient?: Patient has dentist HPI HPI Comments History of Present Illness Details 59-year-old female with ischemic stroke (11/2023) with right hemiparesis RUE, facial droop & slurred speech, hypertension, seasonal allergies, CAD, dilation of ascending aorta, LVH , obesity, obstructive sleep apnea and borderline nocturnal hypoxemia, osteopenia s/p Uterine fibroid removal 05/2000, LEEP, adhesion removal, Right ovary spared s/p ROSETTA Social: 30 y/o special needs step dtr who lives w/ her Home log SBP 120's, DBP 70s History of Present Illness - The patient is a 59-year-old female presenting for hypertension re-evaluation due to recent medication adjustment from 10 mg to 20 mg olmesartan and reports consistent blood pressure readings in the 120s/70s at home Neck pain, in PT who recommended Xrays Exam: General: Well developed, well nourished, in no acute distress. Appears stated age. Head: Normocephalic, atraumatic. Heart: BP recheck as recorded, RRR Pulm: LS CTAB Extremities: No clubbing, cyanosis is noted. No edema bilateral lower extremities, varicosities bilat, spider veins worse on left ankle, right leg a little bigger than L (baseline) Discussion Notes During the visit, I discussed the current management of the patient's hypertension with an increased dosage of olmesartan medication and confirmed positive blood pressure readings at home. We also reviewed her concerns regarding the swelling in her legs, which has resolved, and the impact of her hip pain on daily activities. I advised continuing regular exercise and emphasized using clothing fit as a better indicator of body changes than weight alone. Additionally, I will order x-rays to further evaluate the hip pain, and we will follow up regarding those results. I also addressed the airline travel issue to ensure proper future arrangements. Lastly, we arranged for a future visit in three to four months unless earlier concerns arise. Assessment and Plan 1. Hypertension: Blood pressure is well-managed with 20 mg olemsartan, Continue the current dosage with a 90-day supply. Reassess if home measurements indicate otherwise. 2. Swelling of legs: No persistent swelling, but remain vigilant for changes. Maintain activity levels to support circulation. Xray of neck. Cont PT. [place] [facility] [place] Instructions - Continue taking olmesartan 20mg QD as prescribed. - Engage in regular physical exercise as tolerated. - Use compression stockings if swelling recurs. - Monitor for any new symptoms or significant changes. - Get the x-ray completed at the selected medical center. - Return for follow-up in three to four months, or sooner if problems arise. - Rely on clothing fit for weight management, noting that muscle gain may result in stable weight. Consent I discussed with the patient the nature and purpose of the cervical spine x-ray to evaluate hip pain, including potential risks and benefits. The patient understands that the testing is precautionary. She has chosen to proceed and consent is obtained verbally. Consent was directly obtained from the patient in the clinical setting. Patient was informed and verbally consented to the use of an ambient scribe for clinic note documentation during this visit. Total time spent caring for the patient today was 30 minutes. This includes time spent before the visit reviewing the chart, time spent during the visit, and time spent after the visit on documentation, reviewing laboratory results, diagnostic imaging, medications, performing a medically necessary evaluation, counseling on diagnoses, care coordination, ordering appropriate tests, ordering appropriate medications, review of tests performed by other providers, reporting test results with the patient, communication with other healthcare providers. 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 57624 - PHQ-9 Billing: Patient declined-do not bill Source: Developed by Drs. Kleber Ulloa, Elsy Crystal, Alfred Segovia and colleagues, with an educational mary from [employer]. Thrive Questionnaire Date Thrive assessed: 12/24/24 I am a: Patient What is your living situation today?: I have a steady place to live Within the past 12 months, did the food you bought not last and you didn't have the money to get more?: Never true Within the past 12 months, did you worry whether your food would run out before you got money to buy more?: Never true Do you have trouble paying for medicines?: No Do you have trouble getting transportation to medical appointments?: No Do you have trouble paying your heating and electricity bill?: No Do you have trouble taking care of your child, family member or friend?: No Do you have trouble with day-to-day activities such as bathing, preparing meals, shopping, managing finances, etc.?: No Are you currently unemployed and looking for a job?: No Are you interested in more education?: No Please select the resources that you would like help with: None Currently or been in a relationship where the following occur: No concerns reported THRIVE Score: 0 BRETT-7 AMB Questionnaire BRETT-7 Date BRETT - 7 assessed: 12/24/24 Feeling nervous, anxious, or on edge: 0 = Not at all Not being able to stop or control worryin = Not at all Worrying too much about different things: 0 = Not at all Trouble relaxin = Not at all Being so restless that it is hard to sit still: 0 = Not at all Becoming easily annoyed or irritable: 0 = Not at all Feeling afraid as if something awful might happen: 0 = Not at all Total BRETT-7 score (0-4 normal; 5-9 mild; 10-14 moderate; 15-21 severe): 0 Source: Developed by Drs. Kleber Ulloa, Elsy Crystal, Alfred Segovia and colleagues, with an educational mary from [employer]. BRETT-7 Assessment Billing BRETT-7 Assessment Tool: BRETT-7 Assessment 19751 Physical exam (Primary Care) Vital Signs: Last Vital Signs Temp 97.1 F 12/24/24 09:32 Pulse 58 12/24/24 09:32 Resp 13 12/24/24 09:32 BP 124/72 12/24/24 09:48 Pulse Ox 98 12/24/24 09:32 Oxygen Delivery Method Room Air 12/24/24 09:32 BMI result Body Mass Index 38.6 Tobacco/Smoking Status: Tobacco use Status Tobacco use date assessed 12/24/24 12/24/24 09:34 Patient Tobacco Use Status Never used Tobacco 12/24/24 09:34 e-Cigarette/Vaping Use Never Used 12/24/24 09:34 Thrive Assessment: Date of Thrive Assessment Date Thrive assessed 12/24/24 12/24/24 09:34 Currently or been in a relationship where the following occur: No concerns reported Coding Level of Care Code Est Pt Level 4 (82197) Complex EM visit Add On G2211 Diagnoses Primary hypertension I10 Hypertension type: primary hypertension Cervical radiculitis M54.12 Additional Codes BRETT-7 Assessment Billing - BRETT-7 Assessment Tool: BRETT-7 Assessment 72137 ([id number]) Assessment & Plan Assessment & Plan (1) HTN (hypertension): Code(s): I10 - Essential (primary) hypertension Category: Medical Qualifiers: Hypertension type: primary hypertension Qualified Code(s): I10 - Essential (primary) hypertension (2) Cervical radiculitis: Code(s): M54.12 - Radiculopathy, cervical region Category: Medical Plan . Orders: Orders XR cervical spine w flex/ext Today M54.12 - Radiculopathy, cervical region Hemoglobin A1c 3 Months I10 - Essential (primary) hypertension, I25.10 - Atherosclerotic heart disease of [place] coronary artery without angina pectoris Lipid Panel 3 Months I10 - Essential (primary) hypertension, I25.10 - Atherosclerotic heart disease of [place] coronary artery without angina pectoris XR cervical spine min 6V Today M54.12 - Radiculopathy, cervical region Comprehensive Met. Panel 3 Months I10 - Essential (primary) hypertension, I25.10 - Atherosclerotic heart disease of [place] coronary artery without angina pectoris Medications: New olmesartan 20 mg PO DAILY 90 tabs 2RF Discontinued olmesartan Discontinued Reason: Doctor's Order 10 mg (2 x 5 mg) PO DAILY 180 tabs 0RF
[2024-12-24 09:32] VITALS: BP 152/80; PULSE 58; RESP 13; TEMP 36.2; O2SAT 98; BMI 38.6
[2024-12-24 09:48] VITALS: BP 124/72
== END 2024-12-24 10:04 | disposition home or self-care (01) ==
PROVIDERS: PCP Nurse Practitioner Family; Visit Provider Nurse Practitioner Family
DX: I10 Essential (primary) hypertension (principal); M54.12 Radiculopathy, cervical region

== ENCOUNTER → 2024-12-24 09:26 | Outpatient (BNVA) | payer OTHER, SELFPAY | PROVIDERS: PCP Nurse Practitioner Family; Visit Provider Nurse Practitioner Family | DX: I10 Essential (primary) hypertension (principal); M54.12 Radiculopathy, cervical region | CPT/HCPCS: 96127; 99212 ==

== ENCOUNTER 2024-12-27 15:53 | Outpatient (REF) | payer OTHER, SELFPAY ==
--- NOTE | ~2024-12-27 | XR_ITS ---
CLINICAL HISTORY: M54.12 - Radiculopathy, cervical region Cervical spine six views including flexion-extension Comparison: None Findings: No acute fracture or dislocation is demonstrated. Posterior alignment is normal throughout. Posterior alignment normal on flexion and extension. Moderate lower degenerative change noted. No radiopaque foreign bodies noted. Impression: No acute processes This document has been electronically signed by: Alec Schmidt MD on 12/28/2024 18:09:25
== END 2024-12-27 15:54 | disposition home or self-care (01) ==
LOC: HO.HMGCX 15:53
PROVIDERS: PCP Nurse Practitioner Family; Visit Provider Nurse Practitioner Family
DX: M54.12 Radiculopathy, cervical region (principal)
CPT/HCPCS: 72052

== ENCOUNTER → 2024-12-27 15:57 | Outpatient (BNV) | payer OTHER, SELFPAY | PROVIDERS: PCP Nurse Practitioner Family; Visit Provider Radiology Diagnostic Radiology | DX: M54.12 Radiculopathy, cervical region (principal) | CPT/HCPCS: 72052 ==

== ENCOUNTER 2025-01-27 15:00 | Outpatient (RCR) | payer OTHER, SELFPAY ==
--- NOTE | 2024-12-21 14:49 | MHC.PT.EP ---
[facility] [place] Office [place] Office [place] Office [address] Kailey Escobedo [address] [phone] F: [phone] F: [phone] F: [phone] F: [phone] Physical Therapy Plan of Care Date of Evaluation: 12/21/24 Date of Surgery: n/a Diagnosis: radiculopathy, cervical region Assessment: Patient is a 59 year old female presenting to PT with complaints of pain in her neck. Pt reports onset of pain began July 2024 due to insidious onset. She presents today with impairments in pain, cervical ROM, posture, tissue density, tingling. 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 Clinical presentation today is most consistent with signs and sx associated with neck pain and pt will benefit from skilled PT 2 week x 4 weeks to address the following problems and impairments noted upon evaluation: pain, cervical ROM, posture, tissue density, tingling. These problems limit the patient with the following functional activities: ADLs, work, caring for child and father, sleep. The prescribed treatment plan of care is medically necessary. Co-morbidities of hx stroke were identified and taken into considerations of plan of care. Pt was educated on HEP, role of PT, prognosis, POC. Frequency and Duration: The patient will be seen 2 x week x 4 weeks Short Term Goals: Pt will demonstrate ability to move through available cervical ROM with min to no pain in 2 weeks. Pt will demonstrate less tenderness and tingling with palpation in 2 weeks. Pt will demonstrate improved posture as evidence by min to no cues for correction during the session in 2 weeks. Fci Goals: Pt will demonstrate improved NDI score by 10% in 4 weeks for improved functional mobility. Pt will demonstrate ability to sleep through the night with min to no pain or sx in 4 weeks for improved QOL. Pt will demonstrate ability to work a full day with min to no pain or sx in 4 weeks for return to PLOF. Treatment Plan: Modalities to reduce pain, spasms and effusion. Manual therapy to restore motion and function. Therapeutic exercise to improve strength and flexibility. Neuromuscular re-education for posture and balance. Therapeutic activities to return to functional activities of daily living. Electronically signed by: Ada Ahumada, PT, DPT, ATC Please sign and return to therapist. Thank you for your referral.
--- NOTE | 2025-02-28 07:53 | MHC.PT.DC ---
[facility] [place] Office [place] Office [place] Office [address] Kailey Escobedo [address] [phone] F: [phone] F: [phone] F: [phone] F: [phone] Physical Therapy Discharge Report Diagnosis: radiculopathy, cervical region Date of Surgery: n/a Date of Evaluation: 12/21/24 Date of Discharge: 02/28/25 Treatments to Date: 5 Cancellations to Date: 0 No Shows to Date: 0 Discharge Status: Improved Function Independent with HEP Discharge Summary: Pt had been placed on 30 day hold at last visit as she was feeling much better overall. She has not reached out to be scheduled so we will d/c per plan at last visit. Electronically signed by: Ada Ahumada, PT, DPT, ATC Please sign and return to therapist. Thank you for your referral.
== END 2025-02-28 07:53 | disposition home or self-care (01) ==
LOC: HO.PTCHIC 15:00
PROVIDERS: PCP Nurse Practitioner Family; Visit Provider Internal Medicine
DX: M54.12 Radiculopathy, cervical region (principal)
CPT/HCPCS: 97110; 97140; 97161

== ENCOUNTER 2025-03-16 10:16 | Outpatient (REF) | payer OTHER, SELFPAY ==
[2025-03-16 13:31] LABS: Estimated Average Glucose 108 mg/dL; Hemoglobin A1C 126.5658 umol/L; Hemoglobin A1c % 5.4 % (<6.0); Total Hemoglobin (HGBA1C) 3614.3512 umol/L
[2025-03-16 14:42] LABS: Alanine Aminotransferase 38 U/L (0-31); Albumin Level 4.1 g/dL (3.5-5.0); Alkaline Phosphatase 98 U/L (39-117); Anion Gap 10 (12-20); Aspartate Amino Transferase 35 U/L (5-31); Bilirubin Total 0.9 mg/dL (0.0-1.0); Blood Urea Nitrogen 12 mg/dL (9-16); Calcium 9.1 mg/dL (8.4-10.2); Carbon Dioxide 30 mmol/L (22-29); Chloride 105 mmol/L (96-108); Cholesterol 118 mg/dL (<200); Estimated Glomerular Filt Rate > 60; Glucose Random 84 mg/dL (60-115); HDL Cholesterol 39 mg/dL (>40); LDL Cholesterol Calculated 62 mg/dL (<100); Potassium 4.3 mmol/L (3.3-5.1); Sodium 141 mmol/L (135-145); Total Protein 7.1 g/dL (6.5-8.0); Triglycerides 87 mg/dL (<150)
== END 2025-03-16 10:17 | disposition home or self-care (01) ==
LOC: HO.HMGCLDS 10:16
PROVIDERS: PCP Nurse Practitioner Family; Visit Provider Nurse Practitioner Family
DX: I25.10 Atherosclerotic heart disease of native coronary artery without angina pectoris (principal); I10 Essential (primary) hypertension
CPT/HCPCS: 36415; 80053; 80061; 83036

== ENCOUNTER 2025-03-18 08:28 | Outpatient (AMB) | payer OTHER, SELFPAY ==
--- NOTE | 2025-03-18 08:38 | A.OFFPC_ITS ---
Vital Signs 03/18/25 08:47 Height 5 ft 1 in Weight 202 lb BMI 38.2 BP 122/70 Blood Pressure Location Lt brachial Position Sitting Respiration 12 Pulse 58 Pulse Source Pulse Oximeter Temp 97.5 F Temp Source Oral Pulse Oximetry (%) 98 Oxygen Delivery Method Room Air Intake Visit Reasons: 3-4 months 30 min routine fu labs 1 week before Intake Note: Routine follow up and review labs. Patent is wondering what is a normal resting heart rate. Budget Report Clerk Required: No Allergies clarithromycin [From Biaxin] Allergy (Unknown, Verified 03/18/25 08:39) throat closes Fish Containing Products Allergy (Unknown, Verified 03/18/25 08:39) Migraine Penicillins Allergy (Unknown, Verified 03/18/25 08:39) itchy amlodipine [From Norvasc] Adverse Reaction (Mild, Verified 03/18/25 08:39) edema Medication List - Last Reconciled 03/18/25 by Francheska Ulrich, [employer]- aspirin 81 mg PO DAILY atorvastatin 80 mg PO BEDTIME carvedilol 6.25 mg PO BID cetirizine (All Day Allergy (cetirizine)) 10 mg PO DAILY PRN cranberry conc-ascorbic acid 12,600-20 mg caps PO olmesartan 20 mg PO DAILY Tobacco use date assessed: 03/18/25 Dental Screening Dental Screen Date: 03/18/25 Did you have a dental visit in the last 12 months?: Yes Did you have a dental problem in the last 6 months where you did not have access to dental care?: No Was dental information given to patient?: Patient has dentist HPI HPI Comments History of Present Illness Details 60-year-old female with ischemic stroke (11/2023) with right hemiparesis RUE, facial droop & slurred speech, hypertension, seasonal allergies, CAD, dilation of ascending aorta, LVH , obesity, obstructive sleep apnea and borderline nocturnal hypoxemia, osteopenia s/p Uterine fibroid removal 05/2000, LEEP, adhesion removal, Right ovary spared s/p ROSETTA Social: 30 y/o special needs step dtr who lives w/ her Specialists Neuro @ [facility] Dr Hunter cleared Sleep visit in Oct, annual visits only Cards [facility] Cards per request. Cleared from future f/u. Optho - wears glasses and is est w/ Eye doc and UTD one exams Health Maintenance: Colon has never had colon, denies family hx ,cologaurd 05/11/2024 negative rep eat 3 years . Mammo - 05/2024 WNL Dexa 06/03/24 Osteopenia based on the lowest T-score value of -1.6 in the lumbar spine applying World Health Organization criteria (2025) Tdap 04/30/24 History of Present Illness - The patient is a 60-year-old female pr esenting with a chronic disease management visit. - Essential Hypertension: Stable on carv edilol and olmesartan. - Seasonal Allergies: Controlled with ce tirizine. - Hyperlipidemia: On atorvastatin therap y. Lipid profile at goal - Ischemic Stroke: Experienced in 2003, resulting in right hemiparesis. - Right Hemiparesis: Mild residual facia l deficit. - Obstructive Sleep Apnea: Managed with CPAP. - Osteopenia: Intolerant to calcium and vitamin D supplements. Exercising - Resting Heart Rate: Episodes of bradyc ardia at rest noted on fitbit (40s bpm) without symptomatic concerns. Review of Systems - Cardiovascular: Reports bradycardia ep isodes; denies chest pain, dizziness, faintness. - Neurological: Denies symptoms of strok e recurrence; reports right-sided hemiparesis. - Respiratory: Denies shortness of breat h; manages obstructive sleep apnea with CPAP. - Musculoskeletal: Reports walking activ ity; denies new joint or muscle pain. - Dietary: Admits efforts to reduce shashank atul intake; denies drastic dietary changes. - Dermatological: Denies new skin issues or concerns. - HEENT: Reports chronic nasal congestio n; denies changes in vision or hearing. Exam: General: Well developed, well nourished, in no acute distress. Appears stated age. Head: Normocephalic, atraumatic. Eyes: Pupils are equal, round and reactive to light and accommodation. Conjunctivae are clear. Vision grossly normal. Ears: Mild congestion bilat TM, L>R Neck: Supple, no adenopathy or thyromegaly. Lungs: Clear to auscultation bilaterally. No rales, rhonchi or wheeze noted. Good air flow in all van. Heart: Regular rate and rhythm. No murmurs, click, rubs or gallops are noted. Abdomen: Bowel sounds present in all quadrants. The abdomen is soft, nontender, with no masses or organomegaly noted. No hernias are noted. Extremities: No clubbing, cyanosis is noted. Trace edema bilateral lower extremities, nonpitting, varicosities bilat, spider veins worse on left ankle Neurologic: Gait and station normal. Right facial droop 4/5 RUE otherwise Motor strength grossly symmetrical and intact. No sensory loss. Balance normal. Results 02/2025 Stable lipids, CMP mild elevatio n AST/ALT Discussion Notes During the consultation, I explained to the patient that her antihypertensive medication, carvedilol, is possibly the cause of her low heart rate. Discussed the balance between pulse reduction to manage blood pressure while mitigating potential side effects. It was emphasized that reducing carvedilol might increase her heart rate but could affect blood pressure control. Patients feel comfortable continuing current dosage since no symptoms of weakness or dizziness are reported. We also discussed the difficulty in weight loss and its potential links to hormonal changes and metabolism post-hysterectomy. I advised maintaining consistent exercise and diet adjustments. I assured her of the health benefits of muscle and bone gain, especially given her osteopenia. Recommendations included wearing compression gear and staying hydrated during activities that affect blood pressure. The patient was advised to report any symptoms like faintness or new concerns promptly. No consent was needed for this regular management visit. Assessment and Plan 1. Essential Hypertension - Continue medications; monitor BP. - Consider carvedilol reduction if matty cardia causes symptoms. 2. Hyperlipidemia - Maintain atorvastatin; annual lipid re view. 3. Seasonal Allergies - Continue cetirizine as needed. 4. Obstructive Sleep Apnea - Ongoing CPAP treatment. - Follow-up neurology/sleep consultation s. 5. Osteopenia - Promote exercise. - Re-evaluate supplementation intoleranc e. 6. Ischemic Stroke and Right Hemiparesis - Encourage physical activity. - Monitor stroke symptoms. 7. Weight Management - Maintain activity and diet. - Track body composition changes. 8. Bradycardia - Monitor; report symptoms like dizzines s. Patient Instructions - Take all medications as prescribed. - Monitor blood pressure and heart rate regularly. - Report any new symptoms like dizziness or fainting right away. - Continue regular physical activity. - Wear compression stockings during acti vities as advised. - Stay hydrated, especially in hot weath er. - Return for lab work as discussed. RTO Aug for CPE labs 1 week before Consent Patient was informed and verbally consented to the use of an ambient scribe for clinic note documentation during this visit. Total time spent caring for the patient today was 40 minutes. This includes time spent before the visit reviewing the chart, time spent during the visit, and time spent after the visit on documentation, reviewing laboratory results, diagnostic imaging, medications, performing a medically necessary evaluation, counseling on diagnoses, care coordination, ordering appropriate tests, ordering appropriate medications, review of tests performed by other providers, reporting test results with the patient, communication with other healthcare providers. 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 Current occupational exposures/hazards: No Cognitive needs: No Hearing needs: No Vision needs: Yes (glasses ) Questionnaire Thrive Questionnaire Date Thrive assessed: 11/24/24 I am a: Patient What is your living situation today?: I have a steady place to live Within the past 12 months, did the food you bought not last and you didn't have the money to get more?: Never true Within the past 12 months, did you worry whether your food would run out before you got money to buy more?: Never true Do you have trouble paying for medicines?: No Do you have trouble getting transportation to medical appointments?: No Do you have trouble paying your heating and electricity bill?: No Do you have trouble taking care of your child, family member or friend?: No Do you have trouble with day-to-day activities such as bathing, preparing meals, shopping, managing finances, etc.?: No Are you currently unemployed and looking for a job?: No Are you interested in more education?: No Please select the resources that you would like help with: None Currently or been in a relationship where the following occur: No concerns reported THRIVE Score: 0 BRETT-7 AMB Questionnaire BRETT-7 Date BRETT - 7 assessed: 12/24/24 Source: Developed by Drs. Kleber Ulloa, Elsy Crystal, Alfred Segovia and colleagues, with an educational mary from [facility]. Physical exam (Primary Care) Vital Signs: Last Vital Signs Temp 97.5 F 03/18/25 08:47 Pulse 58 03/18/25 08:47 Resp 12 03/18/25 08:47 BP 122/70 03/18/25 08:47 Pulse Ox 98 03/18/25 08:47 Oxygen Delivery Method Room Air 03/18/25 08:47 BMI result Body Mass Index 38.2 Tobacco/Smoking Status: Tobacco use Status Tobacco use date assessed 03/18/25 03/18/25 08:41 Patient Tobacco Use Status Never used Tobacco 03/18/25 08:38 e-Cigarette/Vaping Use Never Used 03/18/25 08:38 Thrive Assessment: Date of Thrive Assessment Date Thrive assessed 11/24/24 03/18/25 08:38 Currently or been in a relationship where the following occur: No concerns reported Coding Level of Care Code Est Pt Level 5 (84851) Complex EM visit Add On G2211 Diagnoses BMI 37.0-37.9, adult Z68.37 Class 2 severe obesity due to excess calories with serious comorbidity and body mass index (BMI) of 37.0 to 37.9 in adult E66.812; E66.01; Z68.37 Obesity type: due to excess calories Serious obesity comorbidity presence: with serious comorbidity CAD in teller artery I25.10 Ascending aorta dilation I77.810 Cerebrovascular accident (CVA) due to embolism of left middle cerebral artery I63.412 CVA mechanism: embolism Precerebral and cerebral artery: middle cerebral artery Laterality of affected vessel: left Primary hypertension I10 Hypertension type: primary hypertension Hypertensive cardiomegaly I11.9 CHRISTIAN on CPAP G47.33 Class 2 severe obesity due to excess calories with serious comorbidity and body mass index (BMI) of 36.0 to 36.9 in adult E66.01; Z68.36 Obesity type: due to excess calories Obesity classification: adult class 2 (BMI 35 - 39.9) Body mass index: BMI 36.0-36.9 Right hemiparesis G81.91 Cervical radiculitis M54.12 Assessment & Plan Assessment & Plan (1) BMI 37.0-37.9, adult: Code(s): Z68.37 - Body mass index [BMI] 37.0-37.9, adult Category: Medical (2) Class 2 obesity with body mass index (BMI) of 37.0 to 37.9 in adult: Comment: Hyperlipidemia and hypertension Code(s): E66.812 - Obesity, class 2; Z68.37 - Body mass index [BMI] 37.0-37.9, adult Category: Medical Qualifiers: Obesity type: due to excess calories Serious obesity comorbidity pr esence: with serious comorbidity Qualified Code(s): E66.812 - Obesity, class 2; E66.01 - Morbid (severe) obesity due to excess calories; Z68.37 - Body mass index [BMI] 37.0-37.9, adult (3) CAD in teller artery: Code(s): I25.10 - Atherosclerotic heart disease of teller coronary artery without angina pectoris Category: Medical (4) Ascending aorta dilation: Comment: eho 12/19/23 3.6 cm Code(s): I77.810 - Thoracic aortic ectasia Category: Medical (5) CVA (cerebral vascular accident): Comment: left basal ganglia acute infarct and small microhemorrhage in the deep location from small vessel dz r/t uncontrolled HTN Code(s): I63.9 - Cerebral infarction, unspecified Category: Medical Qualifiers: CVA mechanism: embolism Precerebral and cerebral artery: middle cerebral artery Laterality of affected vessel: left Qualified Code(s): I63.412 - Cerebral infarction due to embolism of left middle cerebral artery (6) HTN (hypertension): Code(s): I10 - Essential (primary) hypertension Category: Medical Qualifiers: Hypertension type: primary hypertension Qualified Code(s): I10 - Essential (primary) hypertension (7) Hypertensive cardiomegaly: Comment: echo 12/19/23 LVH EF 55-60% Code(s): I11.9 - Hypertensive heart disease without heart failure Category: Medical (8) CHRISTIAN on CPAP: Comment: Managed by sleep medicine Code(s): G47.33 - Obstructive sleep apnea (adult) (pediatric) Category: Medical (9) Obesity with serious comorbidity: Comment: with htn and cad Code(s): E66.9 - Obesity, unspecified Category: Medical Qualifiers: Obesity type: due to excess calories Obesity classification: adult class 2 (BMI 35 - 39.9) Body mass index: BMI 36.0-36.9 Qualified Code(s): E66.01 - Morbid (severe) obesity due to excess calories; Z68.36 - Body mass index [BMI] 36.0-36.9, adult (10) Right hemiparesis: Comment: Sequela of CVA 12-18-23 Affecting right upper extremity, right facial droop Code(s): G81.91 - Hemiplegia, unspecified affecting right dominant side Category: Medical (11) Cervical radiculitis: Comment: resolved s/p PT No more numbness Code(s): M54.12 - Radiculopathy, cervical region Category: Medical Plan: . Plan . Orders: Orders Complete Blood Count no Diff 05/27/25 G81.91 - Hemiplegia, unspecified affecting right dominant side, I10 - Essential (primary) hypertension, I25.10 - Atherosclerotic heart disease of teller coronary artery without angina pectoris, I63.412 - Cerebral infarction due to embolism of left middle cerebral artery Comprehensive Met. Panel 05/27/25 G81.91 - Hemiplegia, unspecified affecting right dominant side, I10 - Essential (primary) hypertension, I25.10 - Atherosclerotic heart disease of teller coronary artery without angina pectoris, I63.412 - Cerebral infarction due to embolism of left middle cerebral artery Hemoglobin A1c 05/27/25 G81.91 - Hemiplegia, unspecified affecting right dominant side, I10 - Essential (primary) hypertension, I25.10 - Atherosclerotic heart disease of teller coronary artery without angina pectoris, I63.412 - Cerebral infarction due to embolism of left middle cerebral artery Lipid Panel 05/27/25 G81.91 - Hemiplegia, unspecified affecting right dominant side, I10 - Essential (primary) hypertension, I25.10 - Atherosclerotic heart disease of teller coronary artery without angina pectoris, I63.412 - Cerebral infarction due to embolism of left middle cerebral artery Vitamin B12 and Folate 05/27/25 G81.91 - Hemiplegia, unspecified affecting right dominant side, I10 - Essential (primary) hypertension, I25.10 - Atherosclerotic heart disease of teller coronary artery without angina pectoris, I63.412 - Cerebral infarction due to embolism of left middle cerebral artery Microalbumin, Random (w Creat) 05/27/25 G81.91 - Hemiplegia, unspecified affecting right dominant side, I10 - Essential (primary) hypertension, I25.10 - Atherosclerotic heart disease of teller coronary artery without angina pectoris, I63.412 - Cerebral infarction due to embolism of left middle cerebral artery TSH reflex Free T4 05/27/25 G81.91 - Hemiplegia, unspecified affecting right dominant side, I10 - Essential (primary) hypertension, I25.10 - Atherosclerotic heart disease of teller coronary artery without angina pectoris, I63.412 - Cerebral infarction due to embolism of left middle cerebral artery Vitamin D 25-OH Total 05/27/25 G81.91 - Hemiplegia, unspecified affecting right dominant side, I10 - Essential (primary) hypertension, I25.10 - Atherosclerotic heart disease of teller coronary artery without angina pectoris, I63.412 - Cerebral infarction due to embolism of left middle cerebral artery Medications: Refilled carvedilol 6.25 mg PO BID 180 tabs 0RF
[2025-03-18 08:47] VITALS: BP 122/70; PULSE 58; RESP 12; TEMP 36.4; O2SAT 98; BMI 38.2
== END 2025-03-18 09:23 | disposition home or self-care (01) ==
LOC: HO.HMCFM 08:29
PROVIDERS: PCP Nurse Practitioner Family; Visit Provider Nurse Practitioner Family
DX: I63.412 Cerebral infarction due to embolism of left middle cerebral artery (principal); E66.01 Morbid (severe) obesity due to excess calories; Z68.37 Body mass index [BMI] 37.0-37.9, adult; G81.91 Hemiplegia, unspecified affecting right dominant side; I25.10 Atherosclerotic heart disease of native coronary artery without angina pectoris; E66.812 Obesity, class 2; I77.810 Thoracic aortic ectasia; I10 Essential (primary) hypertension; I11.9 Hypertensive heart disease without heart failure; G47.33 Obstructive sleep apnea (adult) (pediatric); Z68.36 Body mass index [BMI] 36.0-36.9, adult; M54.12 Radiculopathy, cervical region

== ENCOUNTER → 2025-03-18 08:28 | Outpatient (BNVA) | payer OTHER, SELFPAY | PROVIDERS: PCP Nurse Practitioner Family; Visit Provider Nurse Practitioner Family | DX: E66.812 Obesity, class 2 (principal); E66.01 Morbid (severe) obesity due to excess calories; Z68.37 Body mass index [BMI] 37.0-37.9, adult; I25.10 Atherosclerotic heart disease of native coronary artery without angina pectoris; I77.810 Thoracic aortic ectasia; I11.9 Hypertensive heart disease without heart failure; G47.33 Obstructive sleep apnea (adult) (pediatric); I69.951 Hemiplegia and hemiparesis following unspecified cerebrovascular disease affecting right dominant side; M54.12 Radiculopathy, cervical region; Z99.89 Dependence on other enabling machines and devices | CPT/HCPCS: 99212 ==

== ENCOUNTER 2025-06-06 07:27 | Outpatient (REF) | payer OTHER, SELFPAY ==
[2025-06-06 10:10] LABS: Hematocrit 37.3 % (37.0-47.0); Hemoglobin 12.8 g/dl (12.0-16.0); Mean Corpuscular HGB Conc 34.3 g/dl (31.0-35.0); Mean Corpuscular Hemoglobin 30.0 pg (27.0-33.0); Mean Corpuscular Volume 87.6 fL (80.0-98.0); NRBC Abs Auto 0.000 X10*3/uL (0.0-0.012); NRBC Pct Auto 0.0 /100WBC (0.0-0.2); Platelet Count 225 X10*3/uL (160-400); Red Blood Count 4.26 X10*6/uL (4.20-5.50); White Blood Count 6.9 X10*3/uL (4.8-10.8)
[2025-06-06 10:19] LABS: Hemoglobin A1C 120.8594 umol/L; Total Hemoglobin (HGBA1C) 3373.5520 umol/L
[2025-06-06 10:36] LABS: Alanine Aminotransferase 26 U/L (0-31); Albumin Level 4.0 g/dL (3.5-5.0); Alkaline Phosphatase 92 U/L (39-117); Anion Gap 11 (12-20); Aspartate Amino Transferase 33 U/L (5-31); Blood Urea Nitrogen 15 mg/dL (9-16); Calcium 9.0 mg/dL (8.4-10.2); Carbon Dioxide 29 mmol/L (22-29); Chloride 107 mmol/L (96-108); Cholesterol 113 mg/dL (<200); Estimated Glomerular Filt Rate > 60; HDL Cholesterol 36 mg/dL (>40); Potassium 3.8 mmol/L (3.3-5.1); Sodium 143 mmol/L (135-145); Total Protein 6.8 g/dL (6.5-8.0); Triglycerides 76 mg/dL (<150)
[2025-06-06 11:04] LABS: Folate > 20.0 ng/mL (> or = 4.0); Vitamin B12 314 pg/mL (200-900)
[2025-06-06 11:04] LABS: Microalbum/Creatinine Ratio Ur 8.1 ug/mg cr (<30)
== END 2025-06-06 07:28 | disposition home or self-care (01) ==
LOC: HO.HMGCLDS 07:27
PROVIDERS: PCP Nurse Practitioner Family; Visit Provider Nurse Practitioner Family
DX: I63.412 Cerebral infarction due to embolism of left middle cerebral artery (principal); I25.10 Atherosclerotic heart disease of native coronary artery without angina pectoris; G81.91 Hemiplegia, unspecified affecting right dominant side; I10 Essential (primary) hypertension
CPT/HCPCS: 36415; 80053; 80061; 82043; 82306; 82570; 82607; 82746; 83036; 84443; 85027

== ENCOUNTER 2025-06-08 09:06 | Outpatient (AMB) | payer OTHER, SELFPAY ==
--- NOTE | 2025-06-08 09:25 | A.OFFPC_ITS ---
Vital Signs 06/08/25 09:37 Height 5 ft 1 in Weight 205 lb 6 oz BMI 38.8 BP 124/72 Blood Pressure Location Rt brachial Position Sitting Respiration 12 Pulse 65 Pulse Source Pulse Oximeter Temp 97.1 F Temp Source Oral Pulse Oximetry (%) 99 Oxygen Delivery Method Room Air Intake Visit Reasons: May CPE Intake Note: CPE. Patient c/o right ankle swollen x 3 weeks. 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: No Allergies clarithromycin (From Biaxin) Allergy (Unknown, Verified 06/08/25 10:14) throat closes Fish Containing Products Allergy (Unknown, Verified 06/08/25 10:14) Migraine Penicillins Allergy (Unknown, Verified 06/08/25 10:14) itchy amlodipine (From Norvas) Adverse Reaction (Mild, Verified 06/08/25 10:14) edema Medication List - Last Reconciled 06/08/25 by Francheska Ulrich, MEAT INSPECTOR- aspirin 81 mg PO DAILY atorvastatin 80 mg PO BEDTIME carvedilol 6.25 mg PO BID cetirizine (All Day Allergy (cetirizine)) 10 mg PO DAILY PRN cranberry conc-ascorbic acid 12,600-20 mg caps PO olmesartan 20 mg PO DAILY Tobacco use date assessed: 06/08/25 Dental Screening Dental Screen Date: 06/08/25 Did you have a dental visit in the last 12 months?: Yes Did you have a dental problem in the last 6 months where you did not have access to dental care?: No Was dental information given to patient?: Patient has dentist HPI HPI Comments History of Present Illness Details 60-year-old female with ischemic stroke (11/2023) with right hemiparesis RUE, facial droop & slurred speech, hypertension, seasonal allergies, CAD, dilation of ascending aorta, LVH , obesity, obstructive sleep apnea and borderline nocturnal hypoxemia, osteopenia s/p Uterine fibroid removal 05/2000, LEEP, adhesion removal, Right ovary spared s/p ROSETTA Fhx: Dad w/ osteoporosis, otherwise no changes Social: 30 y/o special needs step dtr who lives w/ her Specialists Neuro @ [facility] Dr Hunter cleared Sleep visit in Oct, annual visits only Cards [facility] Cards per request. Cleared from future f/u. Optho - wears glasses and is est w/ Eye doc and UTD one exams Spring 2024 Health Maintenance: Colon has never had colon, denies family hx ,cologaurd 05/11/2024 negative repeat 3 years . Mammo - 05/2024 WNL next appt 06/2025 Dexa 06/03/24 Osteopenia based on the lowest T-score value of -1.6 in the lumbar spine applying World Health Organization criteria (2025) Tdap 04/30/24 Pap: N/A History of Present Illness - The patient is a 60-year-old female pr esenting for a CPE and chronic disease management visit. - Essential Hypertension: Stable on carv edilol and olmesartan. - Seasonal Allergies: Controlled with ce tirizine. - Hyperlipidemia: On atorvastatin therap y. Lipid profile at goal - Ischemic Stroke: Experienced in 2003, resulting in right hemiparesis. - Right Hemiparesis: Mild residual facia l deficit. - Obstructive Sleep Apnea: Managed with CPAP. - Osteopenia: Intolerant to calcium and vitamin D supplements. Exercising - Resting Heart Rate: Episodes of bradyc ardia at rest noted on fitbit (40s bpm) without symptomatic concerns. Review of Systems - Cardiovascular: Reports bradycardia ep isodes; denies chest pain, dizziness, faintness. Reports good control with current BP Regimen; no palpitations or chest pain. - Neurological: Denies symptoms of strok e recurrence; reports right-sided hemiparesis. Denies dizziness or significant neurological deficits; notes mild increased effort on right during physical activities post-stroke. - Respiratory: Denies shortness of breat h; manages obstructive sleep apnea with CPAP. Maintains CPAP use; no new respiratory issues. -GI: Reports regular bowel and bladder f unction. - Musculoskeletal: Reports walking activ ity; denies new joint or muscle pain. - Dietary: Admits efforts to reduce shashank atul intake; denies drastic dietary changes. - Dermatological: Concerns raised about a fading mole on the left lower extremity. Present for years. - HEENT: Reports chronic nasal congestio n; denies changes in vision or hearing. Exam: General: Well developed, well nourished, in no acute distress. Appears stated age. Head: Normocephalic, atraumatic. Eyes: Pupils are equal, round and reactive to light and accommodation. Conjunctivae are clear. Vision grossly normal. Ears: TM and EAC clear bilat Nose: Normal Throat: Normal Neck: Supple, no adenopathy or thyromegaly. No carotid bruit bilat Lungs: Clear to auscultation bilaterally. No rales, rhonchi or wheeze noted. Good air flow in all van. Heart: Regular rate and rhythm. No murmurs, click, rubs or gallops are noted. Abdomen: Bowel sounds present in all quadrants. The abdomen is soft, nontender, with no masses or organomegaly noted. No hernias are noted. Extremities: No clubbing, cyanosis is noted. Trace edema bilateral lower extremities, nonpitting, varicosities bilat, spider veins worse on left ankle Skin: L anterior lower leg is a raised, mckeon skin lesion atypical borders, feels like sandpaper; has a similar area proximal to the ankle on the same side Neurologic: Gait and station normal. Right facial droop 4/5 RUE otherwise Motor strength grossly symmetrical and intact. No sensory loss. Balance normal. Mood: Affect appropriate Results See below Discussion Notes During the consultation, I explained to the patient that her antihypertensive medication, carvedilol, is possibly the cause of her low heart rate. Discussed the balance between pulse reduction to manage blood pressure while mitigating potential side effects. It was emphasized that reducing carvedilol might increase her heart rate but could affect blood pressure control. Patients feel comfortable continuing current dosage since no symptoms of weakness or dizziness are reported. I advised maintaining consistent exercise and diet adjustments. I assured her of the health benefits of muscle and bone gain, especially given her osteopenia. Recommendations included wearing compression gear and staying hydrated during activities that affect blood pressure. The patient was advised to report any symptoms like faintness or new concerns promptly. No consent was needed for this regular management visit. Assessment and Plan 1. Essential Hypertension - Continue medications; monitor BP. - Consider carvedilol reduction if matty cardia causes symptoms. 2. Hyperlipidemia/CAD - Maintain atorvastatin 3. Seasonal Allergies - Continue cetirizine as needed. 4. Obstructive Sleep Apnea - Ongoing CPAP treatment. - Follow-up neurology/sleep consultation s. 5. Osteopenia - Promote exercise. - Re-evaluate supplementation intoleranc e. 6. Ischemic Stroke and Right Hemiparesis - Encourage physical activity. - Monitor stroke symptoms. 7. Bradycardia - Monitor; report symptoms like dizzines s. 8. Dermatology - Referral for evaluation skin Left low er ext. Patient Instructions - Take all medications as prescribed. - Monitor blood pressure and heart rate regularly. - Report any new symptoms like dizziness or fainting right away. - Continue regular physical activity. - Wear compression stockings during acti vities as advised. - Stay hydrated, especially in hot weath er. - RTO 6 mo routine fu, labs 1 week befor e, sooner PRN Consent Patient was informed and verbally consented to the use of an ambient scribe for clinic note documentation during this visit. An additional 20 minutes was spent addressing the problem(s) noted at todays v isit. This includes time spent before the visit reviewing the chart, time spent during the visit, and time spent after the visit on documentation reviewing laboratory results, diagnostic imaging, medications, performing a medically necessary evaluation, counseling on diagnoses, care coordination, ordering appropriate tests, ordering appropriate medications, review of tests performed by other providers, reporting test results with the patient, communication with other healthcare providers. 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 1. Little interest or pleasure in doing things: not at all 2. Feeling down, depressed, or hopeless: not at all 3. Trouble falling or staying asleep, or sleeping too much: not at all 4. Feeling tired or having little energy: not at all 5. Poor appetite or overeating: not at all 6. Feeling bad about yourself - or that you are a failure or have let yourself or your family down: not at all 7. Trouble concentrating on things, such as reading the newspaper or watching television: not at all 8. Moving or speaking so slowly that other people could have noticed. Or the opposite - being so fidgety or restless that you have been moving around a lot m ore than usual: not at all 9. Thoughts that you would be better off or of hurting yourself in some way: not at all Total score: 0 Depression Screening Interpretation: Negative Depression Screening Done: Yes 14288 - PHQ-9 Billing: Yes Source: Developed by Drs. Kleber Ulloa, Elsy Crystal, Alfred Segovia and colleagues, with an educational mary from [employer]. Thrive Questionnaire Date Thrive assessed: 06/08/25 I am a: Patient What is your living situation today?: I have a steady place to live Within the past 12 months, did the food you bought not last and you didn't have the money to get more?: Never true Within the past 12 months, did you worry whether your food would run out before you got money to buy more?: Never true Do you have trouble paying for medicines?: No Do you have trouble getting transportation to medical appointments?: No Do you have trouble paying your heating and electricity bill?: No Do you have trouble taking care of your child, family member or friend?: No Do you have trouble with day-to-day activities such as bathing, preparing meals, shopping, managing finances, etc.?: No Are you currently unemployed and looking for a job?: No Are you interested in more education?: No Please select the resources that you would like help with: None Currently or been in a relationship where the following occur: No concerns reported THRIVE Score: 0 BRETT-7 AMB Questionnaire BRETT-7 Date BRETT - 7 assessed: 06/08/25 Feeling nervous, anxious, or on edge: 0 = Not at all Not being able to stop or control worryin = Not at all Worrying too much about different things: 0 = Not at all Trouble relaxin = Not at all Being so restless that it is hard to sit still: 0 = Not at all Becoming easily annoyed or irritable: 0 = Not at all Feeling afraid as if something awful might happen: 0 = Not at all Total BRETT-7 score (0-4 normal; 5-9 mild; 10-14 moderate; 15-21 severe): 0 Source: Developed by Carlos Ramseyet B.W. Bonilla, Alfred Segovia and colleagues, with an educational mary from [employer]. BRETT-7 Assessment Billing BRETT-7 Assessment Tool: BRETT-7 Assessment 11050 Physical exam (Primary Care) Vital Signs: Last Vital Signs Temp 97.1 F 06/08/25 09:37 Pulse 65 06/08/25 09:37 Resp 12 06/08/25 09:37 BP 124/72 06/08/25 09:37 Pulse Ox 99 06/08/25 09:37 Oxygen Delivery Method Room Air 06/08/25 09:37 BMI result Body Mass Index 38.8 Tobacco/Smoking Status: Tobacco use Status Tobacco use date assessed 06/08/25 06/08/25 09:27 Patient Tobacco Use Status Never used Tobacco 06/08/25 09:27 e-Cigarette/Vaping Use Never Used 06/08/25 09:27 PHQ-9: PHQ-9 Score PHQ-9: Total score 0 06/08/25 10:02 Depression Screening Interpretation: Negative Thrive Assessment: Date of Thrive Assessment Date Thrive assessed 06/08/25 06/08/25 09:27 Currently or been in a relationship where the following occur: No concerns reported Results Reviewed Results Reviewed: 06/06/25 Laboratory Result Units Range Interpretation Provider Comments White Blood Count 6.9 X10*3/uL (4.8-10.8) Red Blood Count 4.26 X10*6/uL (4.20-5.50) Hemoglobin 12.8 g/dl (12.0-16.0) Hematocrit 37.3 % (37.0-47.0) Mean Corpuscular Volume 87.6 fL (80.0-98.0) Mean Corpuscular Hemoglobin 30.0 pg (27.0-33.0) Mean Corpuscular Hemoglobin Concent 34.3 g/dl (31.0-35.0) Red Cell Distribution Width 12.9 % (11.0-16.0) Platelet Count 225 X10*3/uL (160-400) Mean Platelet Volume 10.3 fL (9.4-12.3) Nucleated RBC Absolute Count (auto) 0.000 X10*3/uL (0.0-0.012) Nucleated Red Blood Cells % (auto) 0.0 /100WBC (0.0-0.2) Sodium Level 143 mmol/L (135-145) Potassium Level 3.8 mmol/L (3.3-5.1) Chloride Level 107 mmol/L (96-108) Carbon Dioxide Level 29 mmol/L (22-29) Anion Gap 11 (12-20) Low Blood Urea Nitrogen 15 mg/dL (9-16) Creatinine 0.81 mg/dL (0.5-1.4) Estimated Creatinine Clearance Calc Not Reportable Estimat Glomerular Filtration Rate > 60 Random Glucose 93 mg/dL (60-115) Estimated Average Glucose 108 mg/dL Hemoglobin A1c Percent 5.4 % (<6.0) Calcium Level 9.0 mg/dL (8.4-10.2) Total Bilirubin 1.0 mg/dL (0.0-1.0) Aspartate Amino Transf (AST/SGOT) 33 U/L (5-31) High Alanine Aminotransferase (ALT/SGPT) 26 U/L (0-31) Alkaline Phosphatase 92 U/L (39-117) Total Protein 6.8 g/dL (6.5-8.0) Albumin 4.0 g/dL (3.5-5.0) Triglycerides Level 76 mg/dL (<150) Cholesterol Level 113 mg/dL (<200) LDL Cholesterol, Calculated 62 mg/dL (<100) HDL Cholesterol 36 mg/dL (>40) Low Vitamin B12 Level 314 pg/mL (200-900) 25-Hydroxy Vitamin D Total 48.1 ng/mL (>30) Folate > 20.0 ng/mL (> or = 4.0) Thyroid Stimulating Hormone (TSH) 2.12 uIU/mL (0.32-4.0) Urine Creatinine 246.85 mg/dL Urine Microalbumin 20.0 mg/L Urine Microalbumin/Creatinine Ratio 8.1 ug/mg cr (<30) Coding Level of Care Code Est Pt Level 3 (11536) Est Pt Prev Care 40-64y(01582) Diagnoses Encounter for general adult medical examination without abnormal findings Z00.00 Atypical pigmented skin lesion L81.9 CAD in [place] artery I25.10 Primary hypertension I10 Hypertension type: primary hypertension Hypertensive cardiomegaly I11.9 Ascending aorta dilation I77.810 Osteopenia of multiple sites M85.89 Osteopenia location: multiple sites Class 2 severe obesity due to excess calories with serious comorbidity and body mass index (BMI) of 36.0 to 36.9 in adult E66.01; Z68.36 Obesity type: due to excess calories Obesity classification: adult class 2 (BMI 35 - 39.9) Body mass index: BMI 36.0-36.9 Seasonal allergies J30.2 Menopause Z78.0 Cerebrovascular accident (CVA) due to embolism of left middle cerebral artery I63.412 CVA mechanism: embolism Precerebral and cerebral artery: middle cerebral artery Laterality of affected vessel: left Right hemiparesis G81.91 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 R90.82; I99.9 CHRISTIAN on CPAP G47.33 Edema of both lower extremities R60.0 Additional Codes BRETT-7 Assessment Billing - BRETT-7 Assessment Tool: BRETT-7 Assessment 26058 ([id number]) PHQ-9 - 25805 - PHQ-9 Billing: Yes ([id number]) Assessment & Plan Assessment & Plan (1) Encounter for general adult medical examination without abnormal findings: Onset Date: ~06/08/25 Code(s): Z00.00 - Encounter for general adult medical examination without abnormal findings Category: Medical (2) Atypical pigmented skin lesion: Comment: left lower leg Code(s): L81.9 - Disorder of pigmentation, unspecified Category: Medical (3) CAD in [place] artery: Code(s): I25.10 - Atherosclerotic heart disease of [place] coronary artery without angina pectoris Category: Medical (4) HTN (hypertension): Code(s): I10 - Essential (primary) hypertension Category: Medical Qualifiers: Hypertension type: primary hypertension Qualified Code(s): I10 - Essential (primary) hypertension (5) Hypertensive cardiomegaly: Comment: echo 12/19/23 LVH EF 55-60% Code(s): I11.9 - Hypertensive heart disease without heart failure Category: Medical (6) Ascending aorta dilation: Comment: eho 12/19/23 3.6 cm Code(s): I77.810 - Thoracic aortic ectasia Category: Medical (7) Osteopenia: Code(s): M85.80 - Other specified disorders of bone density and structure, unspecified site Category: Medical Qualifiers: Osteopenia location: multiple sites Qualified Code(s): M85.89 - Other specified disorders of bone density and structure, multiple sites (8) Obesity with serious comorbidity: Comment: with htn and cad Code(s): E66.9 - Obesity, unspecified Category: Medical Qualifiers: Obesity type: due to excess calories Obesity classification: adult class 2 (BMI 35 - 39.9) Body mass index: BMI 36.0-36.9 Qualified Code(s): E66.01 - Morbid (severe) obesity due to excess calories; Z68.36 - Body mass index [BMI] 36.0-36.9, adult (9) Seasonal allergies: Code(s): J30.2 - Other seasonal allergic rhinitis Category: Medical (10) Menopause: Code(s): Z78.0 - Asymptomatic menopausal state Category: Medical (11) CVA (cerebral vascular accident): Comment: left basal ganglia acute infarct and small microhemorrhage in the deep location from small vessel dz r/t uncontrolled HTN Code(s): I63.9 - Cerebral infarction, unspecified Category: Medical Qualifiers: CVA mechanism: embolism Precerebral and cerebral artery: middle cerebral artery Laterality of affected vessel: left Qualified Code(s): I63.412 - Cerebral infarction due to embolism of left middle cerebral artery (12) Right hemiparesis: Comment: Sequela of CVA 12-18-23 Affecting right upper extremity, right facial droop Code(s): G81.91 - Hemiplegia, unspecified affecting right dominant side Category: Medical (13) 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 Panel 6 Months I10 - Essential (primary) hypertension, I25.10 - Atherosclerotic heart disease of [place] coronary artery without angina pectoris Hemoglobin A1c 6 Months I10 - Essential (primary) hypertension, I25.10 - Atherosclerotic heart disease of [place] coronary artery without angina pectoris Lipid Panel 6 Months I10 - Essential (primary) hypertension, I25.10 - Atherosclerotic heart disease of [place] coronary artery without angina pectoris Referrals Dermatology Referral L81.9 - Disorder of pigmentation, unspecified Medications: Refilled carvedilol 6.25 mg PO BID 180 tabs 2RF Patient Instructions: Health screenings for women You should visit your health care provider from time to time, even if you are healthy. The purpose of these visits is to: Screen for medical issues Assess your risk for future medical problems Encourage a healthy lifestyle Update vaccinations and other preventive care services Help you get to know your provider in case of an illness Information Even if you feel fine, you should still see your provider for regular checkups. These visits can help you avoid problems in the future. For example, the only way to find out if you have high blood pressure is to have it checked regularly. High blood sugar and high cholesterol levels also may not have any symptoms in the early stages. A simple blood test can check for these conditions. There are specific times when you should see your provider or receive specific health screenings. The [place] Preventive Services Task Force publishes a list of recommended screenings. Below are screening guidelines for women ages 18 to 39. BLOOD PRESSURE SCREENING Your blood pressure should be checked at least once every 3 to 5 years if: Your blood pressure is in the normal range (top number less than 120 mm Hg and bottom number less than 80 mm Hg) You don't have risk factors for high blood pressure Ask your provider if you need your blood pressure checked more often if: The top number is 120 to 129 mm Hg or the bottom number is 70 to 79 mm Hg You have diabetes, heart disease, kidney problems, are overweight, or have certain other health conditions You have a first-degree relative with high blood pressure You are Black You had high blood pressure during a If the top number is 130 mm Hg or greater or the bottom number is 80 mm Hg or greater, this is considered stage 1 hypertension. Schedule an appointment with your provider to learn how you can reduce your blood pressure. Watch for blood pressure screenings in your area. Ask your provider if you can stop in to have your blood pressure checked. BREAST CANCER SCREENING Experts do not agree about the benefits of breast self-exams in finding breast cancer or saving lives. Talk to your provider about what is best for you. A screening mammogram is not recommended for most women under age 40. Your provider may discuss and recommend mammograms, MRI scans, or ultrasounds if you have an increased risk for breast cancer, such as: A mother or sister who had breast cancer at a young age (most often starting screening earlier than the age the close relative was diagnosed) You carry a high-risk genetic marker CERVICAL CANCER SCREENING Cervical cancer screening should start at age 21 years unless your provider advises otherwise. After the first test: Women ages 21 through 29 should have a Pap test every 3 years. Exoprts do not agree on whether HPV testing is recommended for this age group. Women ages 30 through 65 should be screened with either a Pap test every 3 years or the HPV test every 5 years or both tests every 5 years (called cotesting ). Women who have been treated for precancer (cervical dysplasia) should continue to have Pap tests for 20 years after treatment or until age 65, whichever is longer. If you have had your uterus and cervix removed (total hysterectomy), and you have not been diagnosed with cervical cancer or precancer (high grade cervical neoplasia), you do not need cervical cancer screening. CHOLESTEROL SCREENING Cholesterol screening should begin at: Age 45 for women with no known risk factors for coronary heart disease Age 20 for women with known risk factors for coronary heart disease Repeat cholesterol screening should take place: Every 5 years for women with normal cholesterol levels More often if changes occur in lifestyle (including weight gain and diet) More often if you have diabetes, heart disease, kidney problems, or certain other conditions DIABETES SCREENING You should be screened for diabetes starting at age 35 and then repeated every 3 years if you have no risk factors for diabetes. Screening may need to start earlier and be repeated more often if you have other risk factors for diabetes, such as: You have a first degree relative with diabetes. You are overweight or have obesity. You have high blood pressure, prediabetes, or a history of heart disease. Screening for diabetes should be done if you are planning to become and you are overweight and have other risk factors such as high blood pressure. DENTAL EXAM Go to the dentist once or twice every year for an exam and cleaning. Your dentist will evaluate if you need more frequent visits. EYE EXAM Have an eye exam every 5 to 10 years before age 40. If you have vision problems, have an eye exam every 2 years or more often if recommended by your provider. You should have an eye exam that includes an examination of your retina (back of your eye) at least every year if you have diabetes. IMMUNIZATIONS Commonly needed vaccines include: Flu shot: get one every year. COVID-19 vaccine: ask your provider what is best for you. Tetanus-diphtheria and acellular pertussis (Tdap) vaccine: have one at or after age 19 as one of your tetanus-diphtheria vaccines if you did not receive it as an adolescent. Tetanus-diphtheria: have a booster (or Tdap) every 10 years. Varicella vaccine: receive 2 doses if you never had chickenpox or the varicella vaccine. Hepatitis B vaccine: receive 2, 3, or 4 doses, depending on your exact circumstances. Measles, mumps, and rubella (MMR) vaccine: receive 1 to 2 doses if you are not already immune to MMR. Your provider can tell you if you are immune. Ask your provider about the human papillomavirus (HPV) vaccine if: You have not received the HPV vaccine in the past You have not completed the full vaccine series (you should catch up on this shot) Ask your provider if you should receive other immunizations if you have certain health problems that increase your risk for some diseases such as pneumonia. INFECTIOUS DISEASE SCREENING Women who are sexually active should be screened for chlamydia and gonorrhea up until age 25. Women 25 years and older should be screened for chlamydia and gonorrhea if at high risk. Screening for hepatitis C: All adults ages 18 to 79 should get a one-time test for hepatitis C. people should be screened at every . Screening for human immunodeficiency virus (HIV): All people ages 15 to 65 should get a one-time test for HIV. Depending on your lifestyle and medical history, you may also need to be screened for infections such as syphilis and HIV, as well as other infections. PHYSICAL EXAM All adults should visit their provider from time to time, even if they are healthy. The purpose of these visits is to: Screen for disease Assess your risk of future medical problems Encourage a healthy lifestyle Update your vaccinations and other preventive care services Maintain a relationship with a provider in case of an illness Your height, weight, and BMI should be checked at every exam. During your exam, your provider may ask you about: Depression and anxiety Diet and exercise Alcohol and tobacco use Safety issues, such as using seat belts, smoke detectors, and intimate partner violence Your medicines and risk for interactions SKIN SELF-EXAM Your provider may check your skin for signs of skin cancer, especially if you're at high risk, such as if you: Have had skin cancer before Have close relatives with skin cancer Have a weakened immune system OTHER SCREENING Talk with your provider about colon cancer screening if you have a strong family history of colon cancer or polyps, or if you have had inflammatory bowel disease or polyps yourself. Routine bone density screening of women under 40 is not recommended.
[2025-06-08 09:37] VITALS: BP 124/72; PULSE 65; RESP 12; TEMP 36.2; O2SAT 99; BMI 38.8
== END 2025-06-08 10:30 | disposition home or self-care (01) ==
LOC: HO.HMCFM 09:07
PROVIDERS: PCP Nurse Practitioner Family; Visit Provider Nurse Practitioner Family
DX: Z00.00 Encounter for general adult medical examination without abnormal findings (principal); I63.412 Cerebral infarction due to embolism of left middle cerebral artery; G81.91 Hemiplegia, unspecified affecting right dominant side; E66.01 Morbid (severe) obesity due to excess calories; Z68.36 Body mass index [BMI] 36.0-36.9, adult; I10 Essential (primary) hypertension; L81.9 Disorder of pigmentation, unspecified; I25.10 Atherosclerotic heart disease of native coronary artery without angina pectoris; I11.9 Hypertensive heart disease without heart failure; I77.810 Thoracic aortic ectasia; M85.89 Other specified disorders of bone density and structure, multiple sites; J30.2 Other seasonal allergic rhinitis

== ENCOUNTER → 2025-06-08 09:06 | Outpatient (BNVA) | payer OTHER, SELFPAY | PROVIDERS: PCP Nurse Practitioner Family; Visit Provider Nurse Practitioner Family | DX: Z00.00 Encounter for general adult medical examination without abnormal findings (principal); I10 Essential (primary) hypertension; I69.351 Hemiplegia and hemiparesis following cerebral infarction affecting right dominant side; I69.328 Other speech and language deficits following cerebral infarction; J30.2 Other seasonal allergic rhinitis; I25.10 Atherosclerotic heart disease of native coronary artery without angina pectoris; G47.30 Sleep apnea, unspecified; E78.5 Hyperlipidemia, unspecified; M85.80 Other specified disorders of bone density and structure, unspecified site; R00.1 Bradycardia, unspecified; E11.9 Type 2 diabetes mellitus without complications; I77.810 Thoracic aortic ectasia; M85.89 Other specified disorders of bone density and structure, multiple sites; E66.01 Morbid (severe) obesity due to excess calories; E66.812 Obesity, class 2; G47.33 Obstructive sleep apnea (adult) (pediatric); R60.0 Localized edema; Z78.0 Asymptomatic menopausal state; Z68.36 Body mass index [BMI] 36.0-36.9, adult; Z68.38 Body mass index [BMI] 38.0-38.9, adult | CPT/HCPCS: 96127; 99212; 99396 ==

== ENCOUNTER 2025-06-29 15:30 | Outpatient (REF) | payer OTHER, SELFPAY | END 2025-06-29 15:31 | disposition home or self-care (01) | LOC: HO.MAMMO 15:30 | PROVIDERS: PCP Nurse Practitioner Family; Visit Provider Nurse Practitioner Family | DX: Z12.31 Encounter for screening mammogram for malignant neoplasm of breast (principal) | CPT/HCPCS: 77063; 77067 ==

== ENCOUNTER → 2025-06-29 15:45 | Outpatient (BNV) | payer OTHER, SELFPAY | PROVIDERS: PCP Nurse Practitioner Family; Visit Provider Internal Medicine | DX: Z12.31 Encounter for screening mammogram for malignant neoplasm of breast (principal) | CPT/HCPCS: 77063; 77067 ==